=== PATIENT | female | born 1960 | race Caucasian/White ===

== ENCOUNTER 2017-07-16 09:38 | Observation (INO) | payer OTHER ==
--- OUTSIDE RECORDS SUMMARY | 2017-07-16 09:50 | XMS REPORT ---
:1960 External Reference #:[id number] Author Organization [facility] Address [address] [address] Phone [phone] Care Team Providers Name Role Phone Esdras Hyatt MD Primary Care Physician Unavailable Payers Type Date Identification Numbers Payment Provider Subscriber Medicaid Expires: 2016 Policy Number: [id number] Medicaid Ayanna Aleman Group Name: [id number] [address] PayID: [id number] [place] [address] Commercial Effective: 2016 Policy Number: Total Care/Mallory MNG Ayanna Durandl [id number] [facility] Group Name: [id number] [address] [id number] PayID: [id number] [place] [address] Advance Directives Type Date Description Status Comment Other Directive 06/13/2017 Health Care Proxy Current and Verified Problems Date Description Provider Status Onset: 03/22/2016 Abnormal glucose level Esdras Hyatt M.D. 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 Active hand AND/OR wrist Onset: 08/14/2016 Thoracic and lumbosacral neuritis Esdras Hyatt M.D. Active Onset: 04/18/2017 Knee pain Esdras Hyatt M.D. Active Onset: 06/11/2017 Lymphedema Esdras Hyatt M.D. Active Onset: 06/11/2017 Gastroesophageal reflux disease Esdras Hyatt M.D. Active Onset: 06/17/2017 Tachycardia Esdras Hyatt M.D. Active Onset: 03/22/2016 Pain in axilla Esdras Hyatt M.D. Inactive Inactive: 05/22/2016 Onset: 03/22/2016 Low back pain Esdras Hyatt M.D. Inactive Inactive: 06/24/2017 Onset: 03/22/2016 Anxiety state Esdras Hyatt M.D. Inactive Inactive: 06/24/2017 Onset: 05/01/2016 Iliotibial band friction Murphy Molina M.D.,FACP Inactive syndrome Inactive: 06/24/2017 Onset: 08/14/2016 Panic disorder without agoraphobia Esdras Hyatt M.D. Inactive Inactive: 06/24/2017 Onset: 09/04/2016 Lumbar radiculopathy Esdras Hyatt M.D. Inactive Inactive: 06/24/2017 Onset: 04/18/2017 Shoulder joint pain Esdras Hyatt M.D. 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 Cigarette Use Heavy tobacco smoker (more than 10 cigarettes/day) ETOH Use Denies alcohol use Recreational Drug Use Denies Drug Use Smoking Light tobacco smoker (10 or fewer cigarettes/day) Exercise Type/Frequency Exercises sporadically General Hx Text 2 daughters Allergies, Adverse Reactions, Alerts Date Description Reaction Status Severity Comments 03/22/2016 Levaquin active 03/22/2016 Fish-derived Products active 12/25/2016 Seafood active Medications Medication Date Status Form Strength Qnty SIG Indications Ordering Provider Triamterene/Gueydan 07/03/ Active Capsules 37.5-25mg 30cap take one I89.0 [place] chlorothiazide 2016 s capsule by Pachikara mouth once , M.D. daily in the morning Pantoprazole 06/11/ Active Tablets 20mg 30tab once daily K21.[address] s in the morning 1 , MBrandenD. before breakfast Mucinex 05/28/ Active Tablets 600mg 14tab 1 by mouth R05 Zsofia 2016 ER 12HR s twice a day Saurabh, RADIO FREQUENCY TECHNICIAN Zyrtec Allergy 05/28/ Active Capsules 10mg 30cap take one J30.9 Zsofia 2016 s tablet by Saurabh, mouth in RADIO FREQUENCY TECHNICIAN the evening Nasal [place] 12 05/28/ Active Solution 0.05% 30ml 2 sprays R05 Zsofia Hour 2017 each Saurabh, nostril 2x RADIO FREQUENCY TECHNICIAN daily as needed for congestion Ibuprofen 08/14/ Active Tablets 600mg 90tab three times M51.16 Esdras 2016 s a day Patricia Hyatt Vitamin D 06/10/ Active Capsules [id number] 4caps 1 cap every E55.9 Esdras (Ergocalciferol) 2016 weekly Patricia Hyatt Oxycodone HCL 06/10/ Active Tablets 10mg 90tab 1 tab 8h as M66.231 Esdras 2015 s needed Patricia Hyatt Alprazolam / Active Tablets 0.5mg 120ta 1 tab four [place] 0000 bs times a day Olena as needed , M.DBranden for anxiety. Gabapentin / Active Capsules 300mg 90cap 1 by mouth Esdras 0000 s three times Pachikara a day , M.DBranden Robitussin / Active Capsules 10-200mg 1 teaspoon Unknown Cough+Chest 0000 by mouth Congestion DM every 4-6 hours as needed Buspirone HCL / Active Tablets 7.5mg 30tab 1 by mouth Esdras 0000 s daily at [facility] bedtime , M.DBranden Nortriptyline HCL / Active Capsules 10mg 1-2 caps by Unknown 0000 mouth every night as directed Cyclobenzaprine / Active Tablets 10mg one by Unknown HCL 0000 mouth three times a day as needed spasm Diclofenac Sodium / Active Gel 1% apply 1 Unknown 0000 grams on hands twice daily Triamterene/Gueydan 06/17/ Hx Tablets 37.5-25mg 14tab 1/2 tab by I89.0 Esdras chlorothiazide 2016 - s mouth every Pachikara 07/03/ day in Patricia pettit 2017 the morning Amoxicillin/Clavu 06/11/ Hx Tablets 875-125mg 20tab 1 by mouth J06.9 [place] lanate Potassium 2017 - s twice a day Marenikara 06/21/ Patricia 2017 Azithromycin 05/28/ Hx Tablets 250mg 6tabs take 2 tabs R05 Zsofia 2017 - on day one Saurabh, 06/10/ and 1 tabs RADIO FREQUENCY TECHNICIAN 2017 daily for 4 days Azithromycin 12/25/ Hx Tablets 250mg 6tabs 2 tab today J06.9 Esdras 2017 - and then Pachikara 12/25/ 1tab daily , Wilber.Renard 2016 Amoxicillin/Clavu 12/25/ Hx Tablets 875-125mg 20tab 1 by mouth J06.9 Esdras lanate Potassium 2017 - s twice a day Marenikara 03/26/ , Patricia 2016 Amoxicillin 05/17/ Hx Capsules 500mg 15cap 1 by mouth [place] 2016 - s three times Pachikara 06/27/ a day , Patricia 2015 Amoxicillin/Clavu 03/22/ Hx Tablets 500-125mg 14tab 1 by mouth J20.9 Esdras lanate Potassium 2016 - s twice a day Pachikara 05/01/ , Patricia 2016 Nucynta / Hx Tablets 75mg 90tab 1 tab three Tao 0000 - s times a day Jeff, 06/11/ [employer] 2016 Vitamin D / Hx Tablets 1000Unit 2 tabs Murphy (Cholecalciferol) 0000 - daily Renard Molina, 06/10/ fall/winter Patricia,[facility] 2016 Vital Signs Date Vital Result Comment 07/03/2017 Weight 189.00 lb Heart Rate 119 /min BP Systolic Sitting 122 mmHg BP Diastolic Sitting 82 mmHg Body Temperature 98.8 F O2 % BldC Oximetry 94 % 06/17/2017 Weight 192.00 lb Heart Rate 114 /min BP Systolic Standing 125 mmHg BP Diastolic Standing 87 mmHg O2 % BldC Oximetry 91 % 06/11/2017 Height 62 inches 5'2" Weight 192.00 lb Heart Rate 117 /min BP Systolic Sitting 130 mmHg BP Diastolic Sitting 88 mmHg Body Temperature 99.0 F Pain Level 5 knees bilat. worse w stairs O2 % BldC Oximetry 97 % BMI (Body Mass Index) 35.1 kg/m2 05/28/2017 Height 62 inches 5'2" Weight 189.38 lb Heart Rate 111 /min BP Systolic 116 mmHg BP Diastolic 62 mmHg Body Temperature 99.0 F O2 % BldC Oximetry 98 % BMI (Body Mass Index) 34.6 kg/m2 Neck Circumference in inches 5 04/18/2017 Height 62 inches 5'2" Weight 181.50 lb Heart Rate 84 /min BP Systolic 126 mmHg BP Diastolic 64 mmHg Body Temperature 98.7 F O2 % BldC Oximetry 96 % BMI (Body Mass Index) 33.2 kg/m2 04/17/2017 Height 62 inches 5'2" Weight 184.00 lb BP Systolic 114 mmHg BP Diastolic 78 mmHg Respiratory Rate 20 /min Pain Level 3 BMI (Body Mass Index) 33.7 kg/m2 04/14/2017 Height 62.75 inches 5'2.75" Weight 184.00 lb Heart Rate 98 /min BP Systolic 131 mmHg BP Diastolic 85 mmHg Body Temperature 98.1 F BMI (Body Mass Index) 32.9 kg/m2 04/10/2017 Height 62 inches 5'2" Weight 183.50 lb Heart Rate 119 /min BP Systolic 128 mmHg BP Diastolic 76 mmHg Body Temperature 99.0 F O2 % BldC Oximetry 98 % BMI (Body Mass Index) 33.6 kg/m2 03/26/2017 Height 62 inches 5'2" Weight 183.00 lb Heart Rate 112 /min BP Systolic Sitting 152 mmHg BP Diastolic Sitting 80 mmHg O2 % BldC Oximetry 95 % BMI (Body Mass Index) 33.5 kg/m2 12/25/2016 Weight 180.00 lb Heart Rate 132 /min BP Systolic Sitting 120 mmHg BP Diastolic Sitting 78 mmHg O2 % BldC Oximetry 97 % 11/06/2016 Weight 183.00 lb with shoes Heart Rate 103 /min BP Systolic 126 mmHg BP Diastolic 80 mmHg O2 % BldC Oximetry 97 % 09/04/2016 Weight 179.00 lb with shoes Heart Rate 79 /min BP Systolic 114 mmHg BP Diastolic 80 mmHg O2 % BldC Oximetry 98 % 08/14/2016 Weight 178.00 lb with boots Heart Rate 103 /min BP Systolic Sitting 120 mmHg BP Diastolic Sitting 84 mmHg O2 % BldC Oximetry 98 % 07/09/2016 Height 62 inches 5'2" Weight 175.00 lb Heart Rate 86 /min BP Systolic Sitting 110 mmHg BP Diastolic Sitting 78 mmHg Body Temperature 99.0 F O2 % BldC Oximetry 94 % BMI (Body Mass Index) 32.0 kg/m2 06/27/2016 Height 62 inches 5'2" Weight 178.00 lb Heart Rate 106 /min BP Systolic Sitting 136 mmHg BP Diastolic Sitting 88 mmHg Body Temperature 97.8 F O2 % BldC Oximetry 95 % BMI (Body Mass Index) 32.6 kg/m2 06/10/2016 Height 62 inches 5'2" Weight 174.25 lb Heart Rate 105 /min BP Systolic Sitting 120 mmHg BP Diastolic Sitting 80 mmHg Body Temperature 99.5 F O2 % BldC Oximetry 97 % BMI (Body Mass Index) 31.9 kg/m2 05/22/2016 Weight 175.00 lb Heart Rate 87 /min BP Systolic Sitting 128 mmHg BP Diastolic Sitting 62 mmHg Body Temperature 98.4 F O2 % BldC Oximetry 96 % 05/01/2016 Height 62 inches 5'2" Weight 170.00 lb Heart Rate 96 /min BP Systolic Sitting 108 mmHg 127/97 pt cuff BP Diastolic Sitting 82 mmHg 127/97 pt cuff Body Temperature 98.4 F O2 % BldC Oximetry 93 % BMI (Body Mass Index) 31.1 kg/m2 03/22/2016 Height 62 inches 5'2" Weight 169.25 lb BP Systolic Sitting 140 mmHg BP Diastolic Sitting 80 mmHg Body Temperature 98.1 F O2 % BldC Oximetry 97 % BMI (Body Mass Index) 31.0 kg/m2 Results Test Date Test Result H/L Range Note Xray 05/28/2017 Chest PA & Lat 2 <pending> VWS Laboratory test 04/02/2017 Vitamin D, 1,25 37 pg/mL 18-78 1 finding Dihydroxy Lipid Profile 04/02/2017 Triglycerides 191 mg/dL 2 (Trig/Chol/HDL) Cholesterol 198 mg/dL 3 HDL Cholesterol 35.3 mg/dL 4 LDL Cholesterol 125 mg/dL 5 Laboratory test finding 02/07/2017 Erythrocyte Sed Rate 16 mm/Hr 0-30 Rheumatoid Factor <15 IU/mL <15 6 Anti Nuclear Antibody 0.1 U 7 Protein Electrophoresis 10/12/2016 Total Protein(Pep) 6.9 g/dL 6.3 - 7.9 Albumin 3.4 g/dL 3.4-4.7 Alpha-1 Globulin 0.3 g/dL 0.1-0.3 Alpha-2 Globulin 0.9 g/dL 0.6-1.0 Beta Globulin 0.8 g/dL 0.7-1.2 Gamma Globulin 1.4 g/dL 0.6-1.6 Albumin/Globulin Ratio 1.00 Impression See Comment 8 Laboratory test finding 10/12/2016 Hemoglobin A1c (Glyco HGB) 6.0 % Less than 6.0 9 Glucose 87 mg/dL 70-100 10 Drug Abuse 20 Urine 09/13/2016 Urine Amphetamine Negative ng/mL 11 Urine Barbiturates Negative ng/mL 12 Urine Benzodiazepines Presumptive Posi <SEE NOTE> 13 ng/mL Urine Cocaine Negative ng/mL 14 Urine Phencyclidine Negative ng/mL Cutoff: 25 Urine Tetrahydrocannabinol Negative ng/mL Cutoff: 50 15 Creatinine 62.4 mg/dL Specific Nenzel 1.012 pH 6.0 Oxidants Negative 16 Adulterants Comment Normal Codeine, Ur Not Detected ng/mL Cutoff: 25 17 Vdkcxxk-9-ynlx-glucuronide, Ur Not Detected ng/mL 18 Morphine, Ur Not Detected ng/mL Cutoff: 25 19 Vazuxtbs-4-zajn-glucuronide, U Not Detected ng/mL 20 6-monoacetylmorphine, Ur Not Detected ng/mL Cutoff: 25 21 Hydrocodone, Ur Not Detected ng/mL Cutoff: 25 22 Norhydrocodone, Ur Not Detected ng/mL Cutoff: 25 23 Dihydrocodeine, Ur Not Detected ng/mL Cutoff: 25 24 Hydromorphone, Ur Not Detected ng/mL Cutoff: 25 25 Kfouenpnaiulb3jgkttgytqhvihtm Not Detected ng/mL 26 Oxycodone, Ur Present ng/mL Cutoff: 25 27 Noroxycodone, Ur Present ng/mL Cutoff: 25 28 Oxymorphone, Ur Present ng/mL Cutoff: 25 29 Qqtznzpkjbe-0-vaxa-glucuronide Present ng/mL 30 Noroxymorphone, Ur Present ng/mL Cutoff: 25 31 Fentanyl, Ur Not Detected ng/mL Cutoff: 2 32 Norfentanyl, Ur Not Detected ng/mL Cutoff: 2 33 Meperidine, Ur Not Detected ng/mL Cutoff: 25 34 Normeperidine, Ur Not Detected ng/mL Cutoff: 25 35 Naloxone, Ur Not Detected ng/mL Cutoff: 25 36 Nflixnvz-9-ihqi-glucuronide, U Not Detected ng/mL 37 Methadone, Ur Not Detected ng/mL Cutoff: 25 38 Eddp, Ur Not Detected ng/mL Cutoff: 25 39 Propoxyphene, Ur Not Detected ng/mL Cutoff: 25 40 Norpropoxyphene, Ur Not Detected ng/mL Cutoff: 25 41 Tramadol, Ur Not Detected ng/mL Cutoff: 25 42 O-desmethyltramadol, Ur Not Detected ng/mL Cutoff: 25 43 Tapentadol, Ur Not Detected ng/mL Cutoff: 25 44 N-desmethyltapentadol, Ur Not Detected ng/mL Cutoff: 50 45 Rjnvjsxrqc-qncu-nsmgmsewvst, U Not Detected ng/mL 46 Buprenorphine, Ur Not Detected ng/mL Cutoff: 5 47 Norbuprenorphine, Ur Not Detected ng/mL Cutoff: 5 48 Norbuprenorphine glucuronide Not Detected ng/mL Cutoff: 20 49 Opioid Interpretation See Comment 50 Benzodiazepine Confirm Urine 09/13/2016 Urine Lorazepam GC/MS Negative ng/ mL 51 Urine Nordiazepam GC/MS Negative ng/mL 52 Urine Oxazepam GC/MS Negative ng/mL 53 Urine Temazepam GC/MS Negative ng/mL 54 Ur Oh Ethyl Flurazepam GC/MS Negative ng/mL 55 Ur 7 NH Clonazepam GC/MS Negative ng/mL 56 Ur 7 NH Flunitrazepam GC/MS Negative ng/mL Cutoff: 50 Ur Alpha Oh Alprazolam GC/MS 246 ng/mL 57 Ur Alpha Oh Triazolam GC/MS Negative ng/mL 58 Ur Benzodiazepine Interp See Comment 59 Laboratory test finding 09/02/2016 Vitamin D Total 23.0 ng/mL Low 30-50 25(Oh) Benzodiazepine Confirm 06/27/2016 Urine Lorazepam Negative ng/mL 60 Urine GC/MS Urine Nordiazepam GC/MS Negative ng/mL 61 Urine Oxazepam GC/MS Negative ng/mL 62 Urine Temazepam GC/MS Negative ng/mL 63 Ur Oh Ethyl Flurazepam GC/MS Negative ng/mL 64 Ur 7 NH Clonazepam GC/MS Negative ng/mL 65 Ur 7 NH Flunitrazepam GC/MS Negative ng/mL Cutoff: 50 Ur Alpha Oh Alprazolam GC/MS 363 ng/mL 66 Ur Alpha Oh Triazolam GC/MS Negative ng/mL 67 Ur Benzodiazepine Interp See Comment 68 Drug Abuse 20 Urine 06/27/2016 Urine Amphetamine Negative ng/mL 69 Urine Barbiturates Negative ng/mL 70 Urine Benzodiazepines Presumptive Posi <SEE NOTE> 71 ng/mL Urine Cocaine Negative ng/mL 72 Urine Phencyclidine Negative ng/mL Cutoff: 25 Urine Tetrahydrocannabinol Negative ng/mL Cutoff: 50 73 Creatinine 84.0 mg/dL Specific Nenzel 1.010 pH 7.0 Oxidants Negative 74 Adulterants Comment Normal Codeine, Ur Not Detected ng/mL Cutoff: 25 75 Dlqbrum-3-gsqw-glucuronide, Ur Not Detected ng/mL 76 Morphine, Ur Not Detected ng/mL Cutoff: 25 77 Tamlucub-5-pypw-glucuronide, U Not Detected ng/mL 78 6-monoacetylmorphine, Ur Not Detected ng/mL Cutoff: 25 79 Hydrocodone, Ur Not Detected ng/mL Cutoff: 25 80 Norhydrocodone, Ur Not Detected ng/mL Cutoff: 25 81 Dihydrocodeine, Ur Not Detected ng/mL Cutoff: 25 82 Hydromorphone, Ur Not Detected ng/mL Cutoff: 25 83 Wcncgfmuwgcpb7zrupdspgcqwopca Not Detected ng/mL 84 Oxycodone, Ur Present ng/mL Cutoff: 25 85 Noroxycodone, Ur Present ng/mL Cutoff: 25 86 Oxymorphone, Ur Present ng/mL Cutoff: 25 87 Xmavjzyyfjt-8-zpvt-glucuronide Present ng/mL 88 Noroxymorphone, Ur Present ng/mL Cutoff: 25 89 Fentanyl, Ur Not Detected ng/mL Cutoff: 2 90 Norfentanyl, Ur Not Detected ng/mL Cutoff: 2 91 Meperidine, Ur Not Detected ng/mL Cutoff: 25 92 Normeperidine, Ur Not Detected ng/mL Cutoff: 25 93 Naloxone, Ur Not Detected ng/mL Cutoff: 25 94 Cpzeqwwt-9-xtjj-glucuronide, U Not Detected ng/mL 95 Methadone, Ur Not Detected ng/mL Cutoff: 25 96 Eddp, Ur Not Detected ng/mL Cutoff: 25 97 Propoxyphene, Ur Not Detected ng/mL Cutoff: 25 98 Norpropoxyphene, Ur Not Detected ng/mL Cutoff: 25 99 Tramadol, Ur Not Detected ng/mL Cutoff: 25 100 O-desmethyltramadol, Ur Not Detected ng/mL Cutoff: 25 101 Tapentadol, Ur Not Detected ng/mL Cutoff: 25 102 N-desmethyltapentadol, Ur Not Detected ng/mL Cutoff: 50 103 Ilsyrxrydv-kopx-botpvwzkrrr, U Not Detected ng/mL 104 Buprenorphine, Ur Not Detected ng/mL Cutoff: 5 105 Norbuprenorphine, Ur Not Detected ng/mL Cutoff: 5 106 Norbuprenorphine glucuronide Not Detected ng/mL Cutoff: 20 107 Opioid Interpretation See Comment 108 Laboratory test finding 05/08/2016 Vitamin D Total 25(Oh) 17.6 ng/mL Low 30-50 Protein Electrophoresis 05/08/2016 Total Protein(Pep) 6.7 g/dL 6.3 - 7.9 Albumin 3.5 g/dL 3.4-4.7 Alpha-1 Globulin 0.3 g/dL 0.1-0.3 Alpha-2 Globulin 0.8 g/dL 0.6-1.0 Beta Globulin 0.9 g/dL 0.7-1.2 Gamma Globulin 1.3 g/dL 0.6-1.6 Albumin/Globulin Ratio 1.10 Impression See Comment 109 Immunofixation See Comment 110 Basic Metabolic Panel 05/08/2016 Sodium 141 mmol/L 133-145 Potassium 4.2 mmol/L 3.5-5.0 Chloride 107 mmol/L 101-111 Co2 Carbon Dioxide 28 mmol/L 22-32 Anion Gap 6 mmol/L 2-11 Glucose 123 mg/dL High 70-100 Blood Urea Nitrogen 15 mg/dL 6-24 Creatinine 0.81 mg/dL 0.51-0.95 BUN/Creatinine Ratio 18.5 8-20 Calcium 9.3 mg/dL 8.6-10.3 Egfr Non- 73.7 >60 Egfr 94.8 >60 111 CBC Auto Diff 05/08/2016 White Blood Count 8.2 10^3/uL 3.5-10.8 Red Blood Count 4.70 10^6/uL 4.0-5.4 Hemoglobin 14.5 g/dL 12.0-16.0 Hematocrit 43 % 35-47 Mean Corpuscular Volume 91 fL 80-97 Mean Corpuscular Hemoglobin 31 pg 27-31 Mean Corpuscular HGB Conc 34 g/dL 31-36 Red Cell Distribution Width 14 % 10.5-15 Platelet Count 181 10^3/uL 150-450 Mean Platelet Volume 11 um3 High 7.4-10.4 Abs Neutrophils 5.4 10^3/uL 1.5-7.7 Abs Lymphocytes 2.2 10^3/uL 1.0-4.8 Abs Monocytes 0.5 10^3/uL 0-0.8 Abs Eosinophils 0.1 10^3/uL 0-0.6 Abs Basophils 0 10^3/uL 0-0.2 Abs Nucleated RBC 0 10^3/uL Granulocyte % 66.0 % 38-83 Lymphocyte % 26.4 % 25-47 Monocyte % 5.6 % 1-9 Eosinophil % 1.4 % 0-6 Basophil % 0.6 % 0-2 Nucleated Red Blood Cells % 0.1 Benzodiazepine Confirm Urine 03/22/2016 Urine Lorazepam GC/MS Negative ng/ mL 112 Urine Nordiazepam GC/MS Negative ng/mL 113 Urine Oxazepam GC/MS Negative ng/mL 114 Urine Temazepam GC/MS Negative ng/mL 115 Ur Oh Ethyl Flurazepam GC/MS Negative ng/mL 116 Ur 7 NH Clonazepam GC/MS Negative ng/mL 117 Ur 7 NH Flunitrazepam GC/MS Negative ng/mL Cutoff: 50 Ur Alpha Oh Alprazolam GC/MS 522 ng/mL 118 Ur Alpha Oh Triazolam GC/MS Negative ng/mL 119 Ur Benzodiazepine Interp Positive. 120 Drug Abuse 20 Urine 03/22/2016 Urine Amphetamine Negative ng/mL 121 Urine Barbiturates Negative ng/mL 122 Urine Benzodiazepines Presumptive Posi <SEE NOTE> 123 ng/mL Urine Cocaine Negative ng/mL 124 Urine Phencyclidine Negative ng/mL Cutoff: 25 Urine Tetrahydrocannabinol Negative ng/mL Cutoff: 50 125 Creatinine 75.2 mg/dL Specific Nenzel 1.009 pH 6.5 Oxidants Negative 126 Adulterants Comment Normal Codeine, Ur Not Detected ng/mL Cutoff: 25 127 Hmhfmul-9-lode-glucuronide, Ur Not Detected ng/mL 128 Morphine, Ur Not Detected ng/mL Cutoff: 25 129 Anfpuozb-6-wkxb-glucuronide, U Not Detected ng/mL 130 6-monoacetylmorphine, Ur Not Detected ng/mL Cutoff: 25 131 Hydrocodone, Ur Not Detected ng/mL Cutoff: 25 132 Norhydrocodone, Ur Not Detected ng/mL Cutoff: 25 133 Dihydrocodeine, Ur Not Detected ng/mL Cutoff: 25 134 Hydromorphone, Ur Not Detected ng/mL Cutoff: 25 135 Oevglrtnzphlo7kgdgjakyzgwhfnr Not Detected ng/mL 136 Oxycodone, Ur Not Detected ng/mL Cutoff: 25 137 Noroxycodone, Ur Not Detected ng/mL Cutoff: 25 138 Oxymorphone, Ur Not Detected ng/mL Cutoff: 25 139 Okpddigdgxr-3-phkc-glucuronide Not Detected ng/mL 140 Noroxymorphone, Ur Not Detected ng/mL Cutoff: 25 141 Fentanyl, Ur Not Detected ng/mL Cutoff: 2 142 Norfentanyl, Ur Not Detected ng/mL Cutoff: 2 143 Meperidine, Ur Not Detected ng/mL Cutoff: 25 144 Normeperidine, Ur Not Detected ng/mL Cutoff: 25 145 Naloxone, Ur Not Detected ng/mL Cutoff: 25 146 Cajbauqo-2-ajdj-glucuronide, U Not Detected ng/mL 147 Methadone, Ur Not Detected ng/mL Cutoff: 25 148 Eddp, Ur Not Detected ng/mL Cutoff: 25 149 Propoxyphene, Ur Not Detected ng/mL Cutoff: 25 150 Norpropoxyphene, Ur Not Detected ng/mL Cutoff: 25 151 Tramadol, Ur Not Detected ng/mL Cutoff: 25 152 O-desmethyltramadol, Ur Not Detected ng/mL Cutoff: 25 153 Tapentadol, Ur Present ng/mL Cutoff: 25 154 N-desmethyltapentadol, Ur Present ng/mL Cutoff: 50 155 Prmmoilguh-qiiw-nrjvddoxiur, U Present ng/mL 156 Buprenorphine, Ur Not Detected ng/mL Cutoff: 5 157 Norbuprenorphine, Ur Not Detected ng/mL Cutoff: 5 158 Norbuprenorphine glucuronide Not Detected ng/mL Cutoff: 20 159 Opioid Interpretation See Comment 160 1 ADDITIONAL INFORMATION This test was developed and its performance characteristics determined by [facility] in a manner consistent with CLIA requirements. This test has not been cleared or approved by the U.S. Food and Drug Administration. Test Performed by: [facility] - [address] [address] 2 Desirable <150 Borderline high 150-199 High 200-499 Very High >500 3 Desirable <200 Borderline high 200-239 High >239 4 Low <40 Desirable: 40-60 High: >60 5 Desirable: <100 mg/dL Near Optimal: 100-129 mg/dL Borderline High: 130-159 mg/dL High: 160-189 mg/dL Very High: >189 mg/dL 6 Test Performed by: [address] [id number] 7 REFERENCE VALUE <=1.0 (Negative) Test Performed by: [address] [id number] 8 RESULT: Small abnormality in gamma fraction. Test Performed by: [address] [id number] 9 Therapeutic target for the treatment of diabetes Mellitus patients is <7% HBA1C, and in selective patients <6.0%.Please refer to [place] [employer] Diabetic care guidelines for further information. 10 FASTING 10 HOUR 11 REFERENCE VALUE Cutoff: 500 12 REFERENCE VALUE Cutoff: 200 13 Presumptive Positive Drug confirmation to follow. Presumptive Positive means that the screening method is positive, but the test needs to be run by a confirmatory method before being finalized. REFERENCE VALUE Cutoff: 100 14 REFERENCE VALUE Cutoff: 150 15 ADDITIONAL INFORMATION This report is intended for use in clinical monitoring or management of patients. It is not intended for use in employment-related testing. 16 REFERENCE VALUE Cutoff: 200 mg/L 17 Tylenol 3 18 Metabolite of codeine REFERENCE VALUE Cutoff: 100 19 Leticia Romero, Contin; Also a minor metabolite (10%) of codeine and can be seen in low concentrations (<2,000 ng/mL) with poppy seed ingestion. 20 Metabolite of morphine REFERENCE VALUE Cutoff: 100 21 Metabolite of heroin 22 Lortab, [place], Vicodin; Also a very minor metabolite of codeine and impurity (<1%) of oxycodone. 23 Metabolite of hydrocodone 24 Metabolite of hydrocodone 25 Dilaudid, Exalgo; Also a metabolite of hydrocodone and a minor (<5%) metabolite of morphine. 26 Metabolite of hydromorphone REFERENCE VALUE Cutoff: 100 27 Endocet, Percocet, Oxycontin 28 Metabolite of oxycodone 29 Numorphan, Opana; Also a metabolite of oxycodone. 30 Metabolite of oxymorphone REFERENCE VALUE Cutoff: 100 31 Metabolite of oxymorphone 32 Actiq, Duragesic, [place] 33 Metabolite of fentanyl 34 Demerol 35 Metabolite of meperidine 36 Narcan 37 Metabolite of naloxone REFERENCE VALUE Cutoff: 100 38 Dolophine 39 Metabolite of methadone 40 Darvon, Darvocet 41 Metabolite of propoxyphene 42 Tradol, Ultram, Ultracet 43 Metabolite of tramadol 44 Nucynta 45 Metabolite of tapentadol 46 Metabolite of tapentadol REFERENCE VALUE Cutoff: 100 47 Buprenex, Suboxone 48 Metabolite of buprenorphine 49 Metabolite of buprenorphine 50 Test detected the presence of oxycodone and several metabolites (noroxycodone, oxymorphone, noroxymorphone, and jfiwtfzmptu-7-diyi-glucuronide). Suspect use of oxycodone or possibly oxycodone and oxymorphone within the past three days. ADDITIONAL INFORMATION This test was developed and its performance characteristics determined by [facility] in a manner consistent with CLIA requirements. This test has not been cleared or approved by the U.S. Food and Drug Administration. Test Performed by: [facility] [employer] - [address] [address] Computer Systems Hardware Analyst: Andrew Lam II, M.D., Ph.D. 51 REFERENCE VALUE Cutoff: 100 52 REFERENCE VALUE Cutoff: 100 53 REFERENCE VALUE Cutoff: 100 54 REFERENCE VALUE Cutoff: 100 55 REFERENCE VALUE Cutoff: 100 56 REFERENCE VALUE Cutoff: 100 57 REFERENCE VALUE Cutoff: 100 58 REFERENCE VALUE Cutoff: 100 59 Positive. 0-YE-Dyqlfvqfkc testing performed at a x2 dilution; limit of quantitation is elevated. ADDITIONAL INFORMATION This report is intended for use in clinical monitoring and management of patients. It is not intended for use in employment-related testing. This test was developed and its performance characteristics determined by [facility] in a manner consistent with CLIA requirements. This test has not been cleared or approved by the U.S. Food and Drug Administration. Test Performed by: [address] [address] Computer Systems Hardware Analyst: Andrew Lam II, M.D., Ph.D. 60 REFERENCE VALUE Cutoff: 100 61 REFERENCE VALUE Cutoff: 100 62 REFERENCE VALUE Cutoff: 100 63 REFERENCE VALUE Cutoff: 100 64 REFERENCE VALUE Cutoff: 100 65 REFERENCE VALUE Cutoff: 100 66 REFERENCE VALUE Cutoff: 100 67 REFERENCE VALUE Cutoff: 100 68 Positive. 3-RW-Izidklpuwbogh testing performed at a x2 dilution; limit of quantitation is elevated. ADDITIONAL INFORMATION This report is intended for use in clinical monitoring and management of patients. It is not intended for use in employment-related testing. Test Performed by: [facility] - [address] [address] Computer Systems Hardware Analyst: Andrew Lam II, M.D., Ph.D. 69 REFERENCE VALUE Cutoff: 500 70 REFERENCE VALUE Cutoff: 200 71 Presumptive Positive Drug confirmation to follow. Presumptive Positive means that the screening method is positive, but the test needs to be run by a confirmatory method before being finalized. REFERENCE VALUE Cutoff: 100 72 REFERENCE VALUE Cutoff: 150 73 ADDITIONAL INFORMATION This report is intended for use in clinical monitoring or management of patients. It is not intended for use in employment-related testing. 74 REFERENCE VALUE Cutoff: 200 mg/L 75 Tylenol 3 76 Metabolite of codeine REFERENCE VALUE Cutoff: 100 77 Leticia Romero, MS Contin; Also a minor metabolite (10%) of codeine and can be seen in low concentrations (<2,000 ng/mL) with poppy seed ingestion. 78 Metabolite of morphine REFERENCE VALUE Cutoff: 100 79 Metabolite of heroin 80 Lortab, [place], Vicodin; Also a very minor metabolite of codeine and impurity (<1%) of oxycodone. 81 Metabolite of hydrocodone 82 Metabolite of hydrocodone 83 Dilaudid, Exalgo; Also a metabolite of hydrocodone and a minor (<5%) metabolite of morphine. 84 Metabolite of hydromorphone REFERENCE VALUE Cutoff: 100 85 Endocet, Percocet, Oxycontin 86 Metabolite of oxycodone 87 Numorphan, Opana; Also a metabolite of oxycodone. 88 Metabolite of oxymorphone REFERENCE VALUE Cutoff: 100 89 Metabolite of oxymorphone 90 Actiq, Duragesic, Fentora 91 Metabolite of fentanyl 92 Demerol 93 Metabolite of meperidine 94 Narcan 95 Metabolite of naloxone REFERENCE VALUE Cutoff: 100 96 Dolophine 97 Metabolite of methadone 98 Darvon, Darvocet 99 Metabolite of propoxyphene 100 Tradol, Ultram, Ultracet 101 Metabolite of tramadol 102 Nucynta 103 Metabolite of tapentadol 104 Metabolite of tapentadol REFERENCE VALUE Cutoff: 100 105 Buprenex, Suboxone 106 Metabolite of buprenorphine 107 Metabolite of buprenorphine 108 Test detected the presence of oxycodone and several metabolites (noroxycodone, oxymorphone, noroxymorphone, and royzlevyrjl-0-jaqq-glucuronide). Suspect use of oxycodone or possibly oxycodone and oxymorphone within the past three days. ADDITIONAL INFORMATION This test was developed and its performance characteristics determined by [facility] in a manner consistent with CLIA requirements. This test has not been cleared or approved by the U.S. Food and Drug Administration. Test Performed by: [place] [address] Computer Systems Hardware Analyst: Andrew Lam II, M.D., Ph.D. 109 Small abnormality in gamma fraction. See Immunofixation. Test Performed by: [place] [address] Computer Systems Hardware Analyst: Andrew Lam II, M.D., Ph.D. 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 Suggest repeat testing in 6-12 months if clinically indicated. Test Performed by: [place] [address] Computer Systems Hardware Analyst: Andrew Lam II, M.D., Ph.D. 111 Because ethnic data is not always readily available, this report includes an eGFR for both -Americans and non- Americans. The National Kidney Disease Education Program (NKDEP) does not endorse the use of the MDRD equation for patients that are not between the ages of 18 and 70, are , have extremes of body size, muscle mass, or nutritional status, or are non- or non-. According to the National Kidney Foundation, irrespective of diagnosis, the stage of the disease is based on the level of kidney function: Stage Description GFR(mL/min/1.73 m(2)) 1 Kidney damage with normal or decreased GFR 90 2 Kidney damage with mild decrease in GFR 60-89 3 Moderate decrease in GFR 30-59 4 Severe decrease in GFR 15-29 5 Kidney failure <15 (or dialysis) 112 REFERENCE VALUE Cutoff: 100 113 REFERENCE VALUE Cutoff: 100 114 REFERENCE VALUE Cutoff: 100 115 REFERENCE VALUE Cutoff: 100 116 REFERENCE VALUE Cutoff: 100 117 REFERENCE VALUE Cutoff: 100 118 REFERENCE VALUE Cutoff: 100 119 REFERENCE VALUE Cutoff: 100 120 ADDITIONAL INFORMATION This report is intended for use in clinical monitoring and management of patients. It is not intended for use in employment-related testing. Test Performed by: [facility] - [address] [address] Computer Systems Hardware Analyst: Andrew Lam II, M.D., Ph.D. 121 REFERENCE VALUE Cutoff: 500 122 REFERENCE VALUE Cutoff: 200 123 Presumptive Positive Drug confirmation to follow. Presumptive Positive means that the screening method is positive, but the test needs to be run by a confirmatory method before being finalized. REFERENCE VALUE Cutoff: 100 124 REFERENCE VALUE Cutoff: 150 125 ADDITIONAL INFORMATION This report is intended for use in clinical monitoring or management of patients. It is not intended for use in employment-related testing. 126 REFERENCE VALUE Cutoff: 200 mg/L 127 Tylenol 3 128 Metabolite of codeine REFERENCE VALUE Cutoff: 100 129 Leticia Romero, Contin; Also a minor metabolite (10%) of codeine and can be seen in low concentrations (<2,000 ng/mL) with poppy seed ingestion. 130 Metabolite of morphine REFERENCE VALUE Cutoff: 100 131 Metabolite of heroin 132 Lortab, [place], Vicodin; Also a very minor metabolite of codeine and impurity (<1%) of oxycodone. 133 Metabolite of hydrocodone 134 Metabolite of hydrocodone 135 Dilaudid, Exalgo; Also a metabolite of hydrocodone and a minor (<5%) metabolite of morphine. 136 Metabolite of hydromorphone REFERENCE VALUE Cutoff: 100 137 Endocet, Percocet, Oxycontin 138 Metabolite of oxycodone 139 Numorphan, Opana; Also a metabolite of oxycodone. 140 Metabolite of oxymorphone REFERENCE VALUE Cutoff: 100 141 Metabolite of oxymorphone 142 Actiq, Duragesic, Fentora 143 Metabolite of fentanyl 144 Demerol 145 Metabolite of meperidine 146 Narcan 147 Metabolite of naloxone REFERENCE VALUE Cutoff: 100 148 Dolophine 149 Metabolite of methadone 150 Darvon, Darvocet 151 Metabolite of propoxyphene 152 Tradol, Ultram, Ultracet 153 Metabolite of tramadol 154 Nucynta 155 Metabolite of tapentadol 156 Metabolite of tapentadol REFERENCE VALUE Cutoff: 100 157 Buprenex, Suboxone 158 Metabolite of buprenorphine 159 Metabolite of buprenorphine 160 Test detected the presence of tapentadol and two of its metabolites (n-desmethyltapentadol and mlfqhfpqfe-kout-xfmlmxcoing). Suspect use of tapentadol within the past three days. ADDITIONAL INFORMATION This test was developed and its performance characteristics determined by [facility] in a manner consistent with CLIA requirements. This test has not been cleared or approved by the U.S. Food and Drug Administration. PDF Report available at: [email or web address] Test Performed by: [place] [address] Computer Systems Hardware Analyst: Andrew Lam II, M.D., Ph.D. Procedures Date CPT Code Description Status 06/30/2017 17122 Holter Monitor Review (24 hr)dr ahs & bel Completed only 06/17/2017 55255 EKG Tracing & Interpretation Completed 06/17/2017 93942 EKG Tracing & Interpretation Completed 07/28/2014 Mammogram Completed 02/06/2012 Colonoscopy Completed Encounters Type Date Location Provider CPT E/M Dx Office Visit 06/17/2017 3:00p [facility] Internal Medicine Esdras Hyatt [address] R60.0 - Tbdavid Post M.D. R00.0 Office Visit 06/11/2017 4:00p [facility] Internal Medicine Esdras Hyatt [address] J06.9 - Wendi Gomez F41.9 I89.0 K21.9 Office Visit 05/28/2017 2:20p [facility] Internal Medicine - MAYE Gar [address] R05 [place] J30.9 F17.210 Office Visit 04/18/2017 10:00a [facility] Internal Esdras Hyatt 35854 M25.512 Medicine - [place] Gomez M25.562 Office Visit 04/17/2017 2:00p [facility] [place] [address] M25.512 Hu M77.11 G56.31 G56.32 M77.12 Office Visit 04/14/2017 1:15p [facility] Caesar [place], [address] M22.2x1 Of Hu BROWN M22.2x2 Office Visit 04/10/2017 4:20p [facility] Internal Esdras Hyatt 25119 M25.561 Medicine - [place] Gomez M25.562 M77.11 M25.512 Office Visit 03/26/2017 2:00p [facility] Internal Esdras Hyatt, 76690 Z00.01 Lety Adame M.D. F17.210 Z12.39 E55.9 Office Visit 12/25/2016 11:40a [facility] Internal Medicine Esdras Hyatt, [address] E55.9 - Wendi Gomez R73.9 Z11.59 J06.9 Z12.39 Z12.4 F17.210 Office Visit 11/06/2016 4:00p [facility] Internal Medicine Esdras Hyatt, [address]11[address] D47.2 - Wendi Gomez M51.16 F41.0 Office Visit 09/04/2016 4:00p [facility] Internal Esdras Hyatt, 27337 M54.16 Lety Adame M.D. E55.9 Office Visit 08/14/2016 9:40a [facility] Internal Esdras Hyatt, 65171 M66.231 Lety Adame M.D. M51.16 F41.0 Office Visit 07/09/2016 4:00p [facility] Internal Esdras Hyatt M.D. 77270 M54.5 Medicine - [address] Office Visit 06/27/2016 4:00p [facility] Internal Esdras Hyatt M.D. 77656 F41.0 Medicine - [address] M54.5 Z91.013 Office Visit 06/10/2016 1:40p [facility] Internal Esdras Hyatt M.D. 16838 M54.5 Medicine - [address] F41.0 M66.231 E55.9 Office Visit 05/22/2016 4:20p [facility] Internal Murphy Molina, [address]60 M66.231 Medicine - [address] Patricia,FACP M47.26 M76.32 E55.9 D47.2 R73.01 Office Visit 05/01/2016 3:40p [facility] Internal Medicine Murphy Molina, [address] M54.5 - [address] Patricia,FACP M76.32 E55.9 Office Visit 03/22/2016 9:00a [facility] Internal Esdras Hyatt, [address]492 M79.621 Medicine - [place] [address] Gomez M54.5 F41.9 J20.9 R73.9 M25.522 Plan of Care Future Appointment(s):07/09/2017 1:20 pm - Esdras Hyatt M.D. at [facility] Internal Medicine [facility]07/03/2017 - Esdras Hyatt M.D.I89.0 Lymphedema , not elsewhere classifiedNew Medication:Triamterene/Hydrochlorothiazide 37.5- 25 mgNew Xrays:VL Lower Ext Veins RightReferral:Joaquin Pereyra MD, Cardiovsclr DiseaseFollow up:as scheduled
--- OUTSIDE RECORDS SUMMARY | 2017-07-16 09:51 | XMS REPORT ---
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 Payers Type Date Identification Numbers Payment Provider Subscriber Commercial Policy Number: [id number] [facility] Ayanna Alejo PayID: [id number] [address] [address] [place] [address] Problems Date Description Provider Status Onset: 09/04/2016 Lumbar radiculopathy Esdras Hyatt MD Active Onset: 08/14/2016 Thoracic and lumbosacral neuritis Esdras Hyatt MD Active Onset: 08/14/2016 Panic disorder without agoraphobia Esdras Hyatt MD Active Onset: 06/10/2016 Rupture of extensor tendons of hand Esdras Hyatt MD Active AND/OR wrist Onset: 05/22/2016 Extensor carpi radialis tenosynovitis Mukesh Molina MD Active Onset: 05/22/2016 Vitamin D deficiency Mukesh Molina MD Active Onset: 05/01/2016 Iliotibial band friction syndrome Mukesh Molina MD Active Onset: 03/22/2016 Low back pain Esdras Hyatt MD Active Onset: 03/22/2016 Anxiety state Esdras Hyatt MD Active Onset: 03/22/2016 Abnormal glucose level Esdras Hyatt MD Active Family History Date Family Member(s) Problem(s) Comments Father Diabetes Father due to Stroke () Father Hypertension Mother Diabetes Mother Cancer Children 2 First Daughter A&W Second Daughter A&W Siblings 4 First Brother A&W Second Brother A&W Third Brother A&W First Sister Unknown Paternal Grandfather due to Leukemia () Paternal Grandmother due to Old Age () Maternal Grandfather Unknown Maternal Grandmother Unknown Social History Type Date Description Comments Education some college Marital Status Legal Status: Lives With Brothers nephews and neice Occupation Unemployed Cigarette Use Current Cigarette Smoker 1/2 Pack Daily ETOH Use Denies alcohol use Recreational Drug Use Denies Drug Use Smoking Patient is a current smoker, smokes every day Daily Caffeine Consumes on average 3 cups of coffee per day Exercise Type/Frequency Exercises sporadically Seat Belt/Car Seat Always uses seat belt Currently Active Patient is currently not sexually active Contraceptive Methods Current methods include tubal ligation STD's Genital Warts Allergies, Adverse Reactions, Alerts Date Description Reaction Status Severity Comments 03/22/2016 Levofloxacin active 03/22/2016 Fish-Derived Products active 04/28/2017 Contrast Dye active 04/28/2017 Iodine active Medications Medication Date Status Form Strength Qnty SIG Indications Ordering Provider Ibuprofen 08/14/ Active Tablets 600mg 90tabs three M51.16 Pachika 2016 times a Esdras MD Vitamin D 06/10/ Active Capsules [id number] 4caps 1 cap E55.9 Olena (Ergocalciferol) 2015 every , Esdras zamora MD Oxycodone HCL 06/10/ Active Tablets 10mg 90tabs 1 tab 8h M66.231 Pachika 2015 as needed Esdras MD Alprazolam / Active Tablets 0.5mg 120tab 1 tab [place], 0000 s four Mukesh times a MD Reynaldo day as needed for anxiety. Gabapentin / Active Capsules 300mg 90caps 1 by Pachikara 0000 mouth Esdras MD times a day Robitussin / Active Capsules 10-200mg 1 Unknown Cough+Chest 0000 teaspoon Congestion DM by mouth every 4-6 hours as needed Buspirone HCL / Active Tablets 7.5mg 30tabs 1 by [place], 0000 mouth Mukesh stewart Jacobs MD bedtime Nortriptyline HCL / Active Capsules 10mg 1-2 caps Unknown 0000 by mouth every night as directed Cyclobenzaprine / Active Tablets 10mg one by Unknown HCL 0000 mouth three times a day as needed spasm Diclofenac Sodium / Active Gel 1% Unknown 0000 Amoxicillin/Clavu / Active Tablets 500-125mg 1 by Unknown lanate Potassium 0000 mouth twice a day Triamterene/[place] / Active Capsules 37.5-25mg 1 by Unknown chlorothiazide 0000 mouth every day Vital Signs Date Vital Result Comment 06/23/2017 BP Systolic 132 mmHg BP Diastolic 86 mmHg Height 62 inches 5'2" Weight 186.00 lb BMI (Body Mass Index) 34.0 kg/m2 Last Menstrual Period [id number] 2 Parity 2 05/27/2017 BP Systolic 120 mmHg BP Diastolic 80 mmHg Height 62 inches 5'2" Weight 192.00 lb BMI (Body Mass Index) 35.1 kg/m2 2 Parity 2 04/28/2017 BP Systolic 124 mmHg BP Diastolic 82 mmHg Height 62 inches 5'2" Weight 183.00 lb BMI (Body Mass Index) 33.5 kg/m2 Last Menstrual Period 8775449 2 Parity 2 03/26/2017 Heart Rate 112 /min Height 62 inches Weight 183.00 lb BMI (Body Mass Index) 33.5 kg/m2 12/25/2016 Heart Rate 132 /min Weight 180.00 lb 11/06/2016 BP Systolic 126 mmHg BP Diastolic 80 mmHg Heart Rate 103 /min Weight 183.00 lb Results Test Date Test Result H/L Range Note Laboratory test 06/23/2017 Surgical Pathology <pending> finding Laboratory test 04/28/2017 Cytology SEE RESULT BELOW 1 finding Human Papilloma Virus Rna Negative Negative 2 Laboratory test finding 02/07/2017 Anti Nuclear Antibody 0.1 U Erythrocyte Sed Rate 16 mm/Hr 0-30 3 Laboratory test finding 10/12/2016 Glucose 87 mg/dL 70-100 4 Hemoglobin A1c (Glyco HGB) 6.0 % Less than 6.0 5 Protein Electrophoresis 10/12/2016 Albumin 3.4 g/dL 3.4-4.7 Albumin/Globulin Ratio 1.00 1 Alpha-1 Globulin 0.3 g/dL 0.1-0.3 Alpha-2 Globulin 0.9 g/dL 0.6-1.0 Beta Globulin 0.8 g/dL 0.7-1.2 Gamma Globulin 1.4 g/dL 0.6-1.6 Total Protein(Pep) 6.9 g/dL 6.3 - 7.9 6 Laboratory test finding 09/13/2016 Creatinine 62.4 mg/dL 7 Specific [place] 1.012 1 8 Ur Alpha Oh Alprazolam GC/MS 246 ng/mL 9 pH 6.0 1 10 1 SEE RESULT BELOW Name: AYANNA ALEJO : [address]: Fadumo Reed Acct: [id number] Unit: [id number] AGE: 57 Location: [facility] Re04/28/17 SEX: F Status: REG REF SPEC: [id number] JEAN: 04/28/17-[address]: Fadumo Reed REQ: [id number] RECD: 04/29/17-1213 STATUS: SOUT _ ORDERED: TP IMAGE ANAL, HPV/Thin Prep COMMENTS: [id number] FINAL DIAGNOSIS Negative for Intraepithelial lesion or Malignancy A. Ectocervical/Endocervical Specimen Adequacy: Satisfactory of evaluation Transformation zone component identified Patient Information: HPV: High risk HPV RNA testing regardless of pap results. Actual Specimen Date: 04/28/17 Last Menstrual Date: 03/28/17 Spec Date if unknown: 2012 Date Time Test Result Flag (u) Normal Range 04/28/17 1548 HPV RNA Negative Negative The high-risk HPV types detected by the assay include: 16, 18, 31, 33, 35, 39, 45, 51, 52, 56, 58, 59, 66, and 68. Signed (signature on file) MEGA Frias (ASCP) 04/30 1316 This Pap test was evaluated with the assistance of the Service Management Groupp Test Imaging System. Due to cytologic findings at the lighting adviser microscope, comprehensive manual rescreening by a Band Saw Operator Cake Cutting may be required. The Pap Smear is a screening test designed to aid in the detection of premalignant and malignant conditions of the uterine cervix. It is not a diagnostic procedure and should not be used as the sole means of detecting cervical cancer. Both false- positive and false- negative reports do occur. Depending on your risk status, a Pap smear should be obtained and evaluated every 1-3 years. END OF REPORT * ML=Testing performed at Main Lab DEPARTMENT OF PATHOLOGY, [address] [place] [address] Samuel Kimbrough M.D. Director [facility] # [id number] 2 The high-risk HPV types detected by the assay include: 16, 18, 31, 33, 35, 39, 45, 51, 52, 56, 58, 59, 66, and 68. 3 Test Performed by: [address] [address] 4 FASTING 10 HOUR 5 Therapeutic target for the treatment of diabetes Mellitus patients is <7% HBA1C, and in selective patients <6.0%.Please refer to [place] [employer] Diabetic care guidelines for further information. 6 RESULT: Small abnormality in gamma fraction. Test Performed by: [address] [address] 7 Tylenol 3 8 Metabolite of codeine REFERENCE VALUE Cutoff: 100 9 REFERENCE VALUE Cutoff: 100 10 Leticia Romero, MS Contin; Also a minor metabolite (10%) of codeine and can be seen in low concentrations (<2,000 ng/mL) with poppy seed ingestion. Procedures Date CPT Code Description Status 06/23/2017 47860 Biopsy Endometrial W/O Cervical Dilation Completed 05/27/2017 86185 Echography Transvaginal Completed Encounters Type Date Location Provider CPT E/M Dx Office Visit 05/27/2017 2:00p [facility] Hetal Tucker M.D. 14471 N95.0 Office Visit 04/28/2017 2:40p [facility] YOGESH Benton 28444 Z01.419 Plan of Care 05/27/2017 - Hetal Tucker M.D.N95.0 Postmenopausal bleedingComments:Reviewed sono, endometrium 4.5mm, just over 4mm. Uncertain if this represents irreg VB in perimenopause or PMB. Rec endometrial bx, pt agrees to schedule. Rec Ibuprofen one hour prior to appt.
--- OUTSIDE RECORDS SUMMARY | 2017-07-16 09:52 | XMS REPORT ---
:1960 External Reference #:[id number] Author Organization [facility] Address [address] [address] Phone [phone] Care Team Providers Name Role Phone Esdras Hyatt MD Primary Care Physician Unavailable Payers Type Date Identification Numbers Payment Provider Subscriber Medicaid Expires: 2016 Policy Number: [id number] Medicaid Ayanna Aleman Group Name: [id number] [address] PayID: [id number] [place] [address] Commercial Effective: 2016 Policy Number: Total Care/Mallory MNG Ayanna Durandl [id number] [facility] Name: [id number] [address] [address] PayID: [id number] [place] [address] Problems Date Description Provider Status Onset: 03/22/2016 Low back pain Esdras Hyatt M.D. Active Onset: 03/22/2016 Anxiety state Esdras Hyatt M.D. Active Onset: 03/22/2016 Abnormal glucose level Esdras Hyatt M.D. Active Onset: 05/01/2016 Iliotibial band friction syndrome Christian Caballero M.D.,FACP Onset: 05/22/2016 Extensor carpi radialis Christian Caballero tenosynovitis Patricia,FACP Note: with torn ligament right Onset: 05/22/2016 Vitamin D deficiency Christian Caballero M.D.,FACP Onset: 06/10/2016 Rupture of extensor tendons of Esdras Hyatt M.D. Active hand AND/OR wrist Onset: 08/14/2016 Thoracic and lumbosacral neuritis Esdras Hyatt M.D. Active Onset: 08/14/2016 Panic disorder without Esdras Hyatt M.D. Active agoraphobia Onset: 09/04/2016 Lumbar radiculopathy Esdras Hyatt M.D. Active Onset: 06/17/2017 Tachycardia Esdras Hyatt M.D. Active Onset: 06/11/2017 Gastroesophageal reflux disease Esdras Hyatt M.D. Active Onset: 06/11/2017 Lymphedema Esdras Hyatt M.D. Active Onset: 04/18/2017 Knee pain Esdras Hyatt M.D. Active Onset: 04/18/2017 Shoulder joint pain Esdras Hyatt M.D. Active Onset: 03/22/2016 Pain in axilla Esdras Hyatt M.D. 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 Cigarette Use Heavy tobacco smoker (more than [...] Form Strength Qnty SIG Indications Ordering Provider Triamterene/Berne 06/17/ Active Tablets 37.5-25mg 14tab 1/2 tab by I89.0 Esdras chlorothiazide 2017 s mouth every Pachika day in Patricia pettit the morning Amoxicillin/Clavu 06/11/ Hx Tablets 875-125mg 20tab 1 by mouth J06.9 [place] lanate Potassium 2017 - s twice a day Pachikara 06/21/ MEse 2016 Pantoprazole 06/11/ Active Tablets 20mg 30tab once daily K21.[address] elam in the [place]ika morning 1 , MEse before breakfast Mucinex 05/28/ Active Tablets 600mg 14tab 1 by mouth R05 Zsofia 2016 ER 12HR s twice a day Saurabh, INTERVENTIONAL RADIOLOGY RN Zyrtec Allergy 05/28/ Active Capsules 10mg 30cap take one J30.9 Zsofia 2016 s tablet by Saurabh, mouth in INTERVENTIONAL RADIOLOGY RN the evening Nasal [place] 12 05/28/ Active Solution 0.05% 30ml 2 sprays R05 Zsofia Hour 2017 each Saurabh, nostril 2x INTERVENTIONAL RADIOLOGY RN daily as needed for congestion Ibuprofen 08/14/ Active Tablets 600mg 90tab three times M51.16 Esdras 2016 s a day Patricia Hyatt Vitamin D 06/10/ Active Capsules [id number] 4caps 1 cap every E55.9 Esdras (Ergocalciferol) 2015 weekly Patricia Hyatt Oxycodone HCL 06/10/ Active Tablets 10mg 90tab 1 tab 8h as M66.231 Esdras 2015 s needed Patricia Hyatt Alprazolam / Active Tablets 0.5mg 120ta 1 tab four [place] 0000 bs times a day Olena as needed , MBrandenDBranden for anxiety. Gabapentin / Active Capsules 300mg 90cap 1 by mouth [place] 0000 s three times Pachikara a day Patricia Robitussin / Active Capsules 10-200mg 1 teaspoon Unknown Cough+Chest 0000 by mouth Congestion DM every 4-6 hours as needed Buspirone HCL / Active Tablets 7.5mg 30tab 1 by mouth Esdras 0000 s daily at [facility] bedtime , Patricia Nortriptyline HCL / Active Capsules 10mg 1-2 caps by Unknown 0000 mouth every night as directed Cyclobenzaprine / Active Tablets 10mg one by Unknown HCL 0000 mouth three times a day as needed spasm Diclofenac Sodium / Active Gel 1% apply 1 Unknown 0000 grams on hands twice daily Azithromycin 05/28/ Hx Tablets 250mg 6tabs take 2 tabs R05 Zsofia 2016 - on day one Saurabh, 06/10/ and 1 tabs INTERVENTIONAL RADIOLOGY RN 2017 daily for 4 days Azithromycin 12/25/ Hx Tablets 250mg 6tabs 2 tab today J06.9 Esdras 2016 - and then Pachikara 12/25/ 1tab daily , M.DBranden 2017 Amoxicillin/Clavu 12/25/ Hx Tablets 875-125mg 20tab 1 by mouth J06.9 Esdras lanate Potassium 2017 - s twice a day Pachikara 03/26/ , M.D. 2016 Amoxicillin 05/17/ Hx Capsules 500mg 15cap 1 by mouth Esdras 2015 - s three times [place] 06/27/ a day , M.DBranden 2015 Amoxicillin/Clavu 03/22/ Hx Tablets 500-125mg 14tab 1 by mouth J20.9 Esdras lanate Potassium 2016 - s twice a day Pachikara 05/01/ , M.Renard 2015 Nucynta / Hx Tablets 75mg 90tab 1 tab three Tao 0000 - s times a day Jeff, 06/11/ MILIEU TECHNICIAN 2016 Vitamin D / Hx Tablets 1000Unit 2 tabs Murphy (Cholecalciferol) 0000 - daily Renard Molina, 06/10/ fall/winter Patricia,[facility] 2016 Vital Signs Date Vital Result Comment 06/17/2017 Weight 192.00 lb Heart Rate 114 [...] 6 Anti Nuclear Antibody 0.1 U 7 Laboratory test finding 10/12/2016 Hemoglobin A1c (Glyco HGB) 6.0 % Less than 6.0 8 Glucose 87 mg/dL 70-100 9 Protein Electrophoresis 10/12/2016 Total Protein(Pep) 6.9 g/dL 6.3 - 7.9 Albumin 3.4 g/dL 3.4-4.7 Alpha-1 Globulin 0.3 g/dL 0.1-0.3 Alpha-2 Globulin 0.9 g/dL 0.6-1.0 Beta Globulin 0.8 g/dL 0.7-1.2 Gamma Globulin 1.4 g/dL 0.6-1.6 Albumin/Globulin Ratio 1.00 Impression See Comment 10 Drug Abuse 20 Urine 09/13/2016 Urine Amphetamine Negative ng/mL 11 Urine Barbiturates Negative ng/mL 12 Urine Benzodiazepines Presumptive Posi <SEE NOTE> 13 ng/mL Urine Cocaine Negative ng/mL 14 Urine Phencyclidine Negative ng/mL Cutoff: 25 Urine Tetrahydrocannabinol Negative ng/mL Cutoff: 50 15 Creatinine 62.4 mg/dL Specific [place] 1.012 pH 6.0 Oxidants Negative 16 Adulterants Comment Normal Codeine, Ur Not Detected ng/mL Cutoff: 25 17 Hezcyli-0-syuh-glucuronide, Ur Not Detected ng/mL 18 Morphine, Ur Not Detected ng/mL Cutoff: 25 19 Csyubjvt-3-hbyn-glucuronide, U Not Detected ng/mL 20 6-monoacetylmorphine, Ur Not Detected ng/mL Cutoff: 25 21 Hydrocodone, Ur Not Detected ng/mL Cutoff: 25 22 Norhydrocodone, Ur Not Detected ng/mL Cutoff: 25 23 Dihydrocodeine, Ur Not Detected ng/mL Cutoff: 25 24 Hydromorphone, Ur Not Detected ng/mL Cutoff: 25 25 Auxuyfbjgbqzq4tmkqdhhkmkpwhbo Not Detected ng/mL 26 Oxycodone, Ur Present ng/mL Cutoff: 25 27 Noroxycodone, Ur Present ng/mL Cutoff: 25 28 Oxymorphone, Ur Present ng/mL Cutoff: 25 29 Rssdfbsnwgb-6-xuvy-glucuronide Present ng/mL 30 Noroxymorphone, Ur Present ng/mL Cutoff: 25 31 Fentanyl, Ur Not Detected ng/mL Cutoff: 2 32 Norfentanyl, Ur Not Detected ng/mL Cutoff: 2 33 Meperidine, Ur Not Detected ng/mL Cutoff: 25 34 Normeperidine, Ur Not Detected ng/mL Cutoff: 25 35 Naloxone, Ur Not Detected ng/mL Cutoff: 25 36 Mgmnwmgv-6-uezn-glucuronide, U Not Detected ng/mL 37 Methadone, Ur [...] Ur Not Detected ng/mL Cutoff: 50 45 Cmtqigeemk-btpc-qgcvalzpwnp, U Not Detected ng/mL 46 Buprenorphine, Ur [...] Laboratory test finding 09/02/2016 Vitamin D Total 25(Oh) 23.0 ng/mL Low 30-50 Drug Abuse 20 Urine 06/27/2016 Urine Amphetamine Negative ng/mL 60 Urine Barbiturates Negative ng/mL 61 Urine Benzodiazepines Presumptive Posi <SEE NOTE> 62 ng/mL Urine Cocaine Negative ng/mL 63 Urine Phencyclidine Negative ng/mL Cutoff: 25 Urine Tetrahydrocannabinol Negative ng/mL Cutoff: 50 64 Creatinine 84.0 mg/dL Specific [place] 1.010 pH 7.0 Oxidants Negative 65 Adulterants Comment Normal Codeine, Ur Not Detected ng/mL Cutoff: 25 66 Eilovlj-7-yuhr-glucuronide, Ur Not Detected ng/mL 67 Morphine, Ur Not Detected ng/mL Cutoff: 25 68 Lsdnjhwu-8-zaai-glucuronide, U Not Detected ng/mL 69 6-monoacetylmorphine, Ur Not Detected ng/mL Cutoff: 25 70 Hydrocodone, Ur Not Detected ng/mL Cutoff: 25 71 Norhydrocodone, Ur Not Detected ng/mL Cutoff: 25 72 Dihydrocodeine, Ur Not Detected ng/mL Cutoff: 25 73 Hydromorphone, Ur Not Detected ng/mL Cutoff: 25 74 Avdssyverotog7rnybrhcikhjgxhf Not Detected ng/mL 75 Oxycodone, Ur Present ng/mL Cutoff: 25 76 Noroxycodone, Ur Present ng/mL Cutoff: 25 77 Oxymorphone, Ur Present ng/mL Cutoff: 25 78 Stdofykdbvb-2-atwa-glucuronide Present ng/mL 79 Noroxymorphone, Ur Present ng/mL Cutoff: 25 80 Fentanyl, Ur Not Detected ng/mL Cutoff: 2 81 Norfentanyl, Ur Not Detected ng/mL Cutoff: 2 82 Meperidine, Ur Not Detected ng/mL Cutoff: 25 83 Normeperidine, Ur Not Detected ng/mL Cutoff: 25 84 Naloxone, Ur Not Detected ng/mL Cutoff: 25 85 Jlfycuke-3-mwtt-glucuronide, U Not Detected ng/mL 86 Methadone, Ur Not Detected ng/mL Cutoff: 25 87 Eddp, Ur Not Detected ng/mL Cutoff: 25 88 Propoxyphene, Ur Not Detected ng/mL Cutoff: 25 89 Norpropoxyphene, Ur Not Detected ng/mL Cutoff: 25 90 Tramadol, Ur Not Detected ng/mL Cutoff: 25 91 O-desmethyltramadol, Ur Not Detected ng/mL Cutoff: 25 92 Tapentadol, Ur Not Detected ng/mL Cutoff: 25 93 N-desmethyltapentadol, Ur Not Detected ng/mL Cutoff: 50 94 Sgjhgiczsq-djgn-rtuhzjlzfkt, U Not Detected ng/mL 95 Buprenorphine, Ur Not Detected ng/mL Cutoff: 5 96 Norbuprenorphine, Ur Not Detected ng/mL Cutoff: 5 97 Norbuprenorphine glucuronide Not Detected ng/mL Cutoff: 20 98 Opioid Interpretation See Comment 99 Benzodiazepine Confirm Urine 06/27/2016 Urine Lorazepam GC/MS Negative ng/ mL 100 Urine Nordiazepam GC/MS Negative ng/mL 101 Urine Oxazepam GC/MS Negative ng/mL 102 Urine Temazepam GC/MS Negative ng/mL 103 Ur Oh Ethyl Flurazepam GC/MS Negative ng/mL 104 Ur 7 NH Clonazepam GC/MS Negative ng/mL 105 Ur 7 NH Flunitrazepam GC/MS Negative ng/mL Cutoff: 50 Ur Alpha Oh Alprazolam GC/MS 363 ng/mL 106 Ur Alpha Oh Triazolam GC/MS Negative ng/mL 107 Ur Benzodiazepine Interp See Comment 108 Basic Metabolic Panel 05/08/2016 Sodium 141 mmol/L 133-145 Potassium 4.2 mmol/L 3.5-5.0 Chloride 107 mmol/L 101-111 Co2 Carbon Dioxide 28 mmol/L 22-32 Anion Gap 6 mmol/L 2-11 Glucose 123 mg/dL High 70-100 Blood Urea Nitrogen 15 mg/dL 6-24 Creatinine 0.81 mg/dL 0.51-0.95 BUN/Creatinine Ratio 18.5 8-20 Calcium 9.3 mg/dL 8.6-10.3 Egfr Non- 73.7 >60 Egfr 94.8 >60 109 CBC Auto Diff 05/08/2016 White Blood Count [...] 0-2 Nucleated Red Blood Cells % 0.1 Protein Electrophoresis 05/08/2016 Total Protein(Pep) 6.7 g/dL 6.3 - 7.9 Albumin 3.5 g/dL 3.4-4.7 Alpha-1 Globulin 0.3 g/dL 0.1-0.3 Alpha-2 Globulin 0.8 g/dL 0.6-1.0 Beta Globulin 0.9 g/dL 0.7-1.2 Gamma Globulin 1.3 g/dL 0.6-1.6 Albumin/Globulin Ratio 1.10 Impression See Comment 110 Immunofixation See Comment 111 Laboratory test finding 05/08/2016 Vitamin D Total 17.6 ng/mL Low 30-50 25(Oh) Benzodiazepine Confirm 03/22/2016 Urine Lorazepam Negative ng/mL 112 Urine GC/MS Urine Nordiazepam GC/MS Negative ng/mL 113 Urine [...] Cutoff: 50 125 Creatinine 75.2 mg/dL Specific [place] 1.009 pH 6.5 Oxidants Negative 126 Adulterants Comment Normal Codeine, Ur Not Detected ng/mL Cutoff: 25 127 Hyfskvk-8-djgp-glucuronide, Ur Not Detected ng/mL 128 Morphine, Ur Not Detected ng/mL Cutoff: 25 129 Cfpxuuvz-4-kjlc-glucuronide, U Not Detected ng/mL 130 6-monoacetylmorphine, Ur Not Detected ng/mL Cutoff: 25 131 Hydrocodone, Ur Not Detected ng/mL Cutoff: 25 132 Norhydrocodone, Ur Not Detected ng/mL Cutoff: 25 133 Dihydrocodeine, Ur Not Detected ng/mL Cutoff: 25 134 Hydromorphone, Ur Not Detected ng/mL Cutoff: 25 135 Ejqkrcqfjzgat8hbwzevarkwuffhb Not Detected ng/mL 136 Oxycodone, Ur Not Detected ng/mL Cutoff: 25 137 Noroxycodone, Ur Not Detected ng/mL Cutoff: 25 138 Oxymorphone, Ur Not Detected ng/mL Cutoff: 25 139 Uboevfxoecg-9-wmon-glucuronide Not Detected ng/mL 140 Noroxymorphone, Ur Not Detected ng/mL Cutoff: 25 141 Fentanyl, Ur Not Detected ng/mL Cutoff: 2 142 Norfentanyl, Ur Not Detected ng/mL Cutoff: 2 143 Meperidine, Ur Not Detected ng/mL Cutoff: 25 144 Normeperidine, Ur Not Detected ng/mL Cutoff: 25 145 Naloxone, Ur Not Detected ng/mL Cutoff: 25 146 Bmudklmh-1-zxcu-glucuronide, U Not Detected ng/mL 147 Methadone, Ur [...] N-desmethyltapentadol, Ur Present ng/mL Cutoff: 50 155 Vdtjxfhyge-xwet-xbqcexdnrwg, U Present ng/mL 156 Buprenorphine, Ur Not Detected ng/mL Cutoff: 5 157 Norbuprenorphine, Ur Not Detected ng/mL Cutoff: 5 158 Norbuprenorphine glucuronide Not Detected ng/mL Cutoff: 20 159 Opioid Interpretation See Comment 160 1 ADDITIONAL INFORMATION This test was developed and its performance characteristics determined by [facility] in a manner consistent with CLIA requirements. This test has not been cleared or approved by the U.S. Food and Drug Administration. Test Performed by: [place] [address] 2 Desirable <150 Borderline high 150-199 High 200-499 Very High >500 3 Desirable <200 Borderline high 200-239 High >239 4 Low <40 Desirable: 40-60 High: >60 5 Desirable: <100 mg/dL Near Optimal: 100-129 mg/dL Borderline High: 130-159 mg/dL High: 160-189 mg/dL Very High: >189 mg/dL 6 Test Performed by: [address] [address] 7 REFERENCE VALUE <=1.0 (Negative) Test Performed by: [address] [place] [address] 8 Therapeutic target for the treatment of diabetes Mellitus patients is <7% HBA1C, and in selective patients <6.0%.Please refer to [place] [employer] Diabetic care guidelines for further information. 9 FASTING 10 HOUR 10 RESULT: Small abnormality in gamma fraction. Test Performed by: [facility] - [address] [address] 11 REFERENCE VALUE Cutoff: 500 12 REFERENCE [...] REFERENCE VALUE Cutoff: 100 19 Leticia Romero, MS Contin; Also a minor metabolite (10%) of codeine and can be seen in low concentrations (<2,000 ng/mL) with poppy seed ingestion. 20 Metabolite of morphine REFERENCE VALUE Cutoff: 100 21 Metabolite of heroin 22 Lortab, Mccoll, Vicodin; Also a very minor metabolite of [...] and several metabolites (noroxycodone, oxymorphone, noroxymorphone, and mqmyzmrijmi-7-yoip-glucuronide). Suspect use of oxycodone or possibly oxycodone and oxymorphone within the past three days. ADDITIONAL INFORMATION This test was developed and its performance characteristics determined by [facility] in a manner consistent with CLIA requirements. This test has not been cleared or approved by the U.S. Food and Drug Administration. Test Performed by: [facility] [place] [address] Agent: Andrew Lam II, M.D., Ph.D. 51 REFERENCE VALUE Cutoff: 100 52 REFERENCE VALUE Cutoff: 100 53 REFERENCE VALUE Cutoff: 100 54 REFERENCE VALUE Cutoff: 100 55 REFERENCE VALUE Cutoff: 100 56 REFERENCE VALUE Cutoff: 100 57 REFERENCE VALUE Cutoff: 100 58 REFERENCE VALUE Cutoff: 100 59 Positive. 0-DK-Upjjnnyowd testing performed at a x2 dilution; limit of quantitation is elevated. ADDITIONAL INFORMATION This report is intended for use in clinical monitoring and management of patients. It is not intended for use in employment-related testing. This test was developed and its performance characteristics determined by [facility] in a manner consistent with CLIA requirements. This test has not been cleared or approved by the U.S. Food and Drug Administration. Test Performed by: [facility] - [address] [address] Agent: Andrew Lam II, M.D., Ph.D. 60 REFERENCE VALUE Cutoff: 500 61 REFERENCE VALUE Cutoff: 200 62 Presumptive Positive Drug confirmation to follow. Presumptive Positive means that the screening method is positive, but the test needs to be run by a confirmatory method before being finalized. REFERENCE VALUE Cutoff: 100 63 REFERENCE VALUE Cutoff: 150 64 ADDITIONAL INFORMATION This report is intended for use in clinical monitoring or management of patients. It is not intended for use in employment-related testing. 65 REFERENCE VALUE Cutoff: 200 mg/L 66 Tylenol 3 67 Metabolite of codeine REFERENCE VALUE Cutoff: 100 68 Leticia Romero, MS Contin; Also a minor metabolite (10%) of codeine and can be seen in low concentrations (<2,000 ng/mL) with poppy seed ingestion. 69 Metabolite of morphine REFERENCE VALUE Cutoff: 100 70 Metabolite of heroin 71 Lortab, Mccoll, Vicodin; Also a very minor metabolite of codeine and impurity (<1%) of oxycodone. 72 Metabolite of hydrocodone 73 Metabolite of hydrocodone 74 Dilaudid, Exalgo; Also a metabolite of hydrocodone and a minor (<5%) metabolite of morphine. 75 Metabolite of hydromorphone REFERENCE VALUE Cutoff: 100 76 Endocet, Percocet, Oxycontin 77 Metabolite of oxycodone 78 Numorphan, Opana; Also a metabolite of oxycodone. 79 Metabolite of oxymorphone REFERENCE VALUE Cutoff: 100 80 Metabolite of oxymorphone 81 Actiq, Duragesic, Fentora 82 Metabolite of fentanyl 83 Demerol 84 Metabolite of meperidine 85 Narcan 86 Metabolite of naloxone REFERENCE VALUE Cutoff: 100 87 Dolophine 88 Metabolite of methadone 89 Darvon, Darvocet 90 Metabolite of propoxyphene 91 Tradol, Ultram, Ultracet 92 Metabolite of tramadol 93 Nucynta 94 Metabolite of tapentadol 95 Metabolite of tapentadol REFERENCE VALUE Cutoff: 100 96 Buprenex, Suboxone 97 Metabolite of buprenorphine 98 Metabolite of buprenorphine 99 Test detected the presence of oxycodone and several metabolites (noroxycodone, oxymorphone, noroxymorphone, and fpwenzxztmn-1-ostt-glucuronide). Suspect use of oxycodone or possibly oxycodone and oxymorphone within the past three days. ADDITIONAL INFORMATION This test was developed and its performance characteristics determined by [facility] in a manner consistent with CLIA requirements. This test has not been cleared or approved by the U.S. Food and Drug Administration. Test Performed by: [facility] [employer] - [address] Agent: Andrew Lam II, M.D., Ph.D. 100 REFERENCE VALUE Cutoff: 100 101 REFERENCE VALUE Cutoff: 100 102 REFERENCE VALUE Cutoff: 100 103 REFERENCE VALUE Cutoff: 100 104 REFERENCE VALUE Cutoff: 100 105 REFERENCE VALUE Cutoff: 100 106 REFERENCE VALUE Cutoff: 100 107 REFERENCE VALUE Cutoff: 100 108 Positive. 5-SY-Bjwhlvqhxxkip testing performed at a x2 dilution; limit of quantitation is elevated. ADDITIONAL INFORMATION This report is intended for use in clinical monitoring and management of patients. It is not intended for use in employment-related testing. Test Performed by: [facility] [employer] - [address] Agent: Andrew Lam II, M.D., Ph.D. 109 Because ethnic data is not always readily [...] 15-29 5 Kidney failure <15 (or dialysis) 110 Small abnormality in gamma fraction. See Immunofixation. Test Performed by: [place] [address] Agent: Andrew Lam II, M.D., Ph.D. 111 Small monoclonal IgG lambda within the gamma fraction. Suggest repeat testing in 6-12 months if clinically indicated. Test Performed by: [place] [address] Agent: Andrew Lam II, M.D., Ph.D. 112 REFERENCE VALUE Cutoff: 100 113 REFERENCE [...] use in employment-related testing. Test Performed by: [address] [address] Agent: Andrew Lam II, M.D., Ph.D. 121 REFERENCE [...] REFERENCE VALUE Cutoff: 100 129 Leticia Romero, MS Contin; Also a minor metabolite (10%) of codeine and can be seen in low concentrations (<2,000 ng/mL) with poppy seed ingestion. 130 Metabolite of morphine REFERENCE VALUE Cutoff: 100 131 Metabolite of heroin 132 Lortab, Mccoll, Vicodin; Also a very minor metabolite of [...] and two of its metabolites (n-desmethyltapentadol and hvrjyyiybd-srvv-eqsvggkneif). Suspect use of tapentadol within the past three days. ADDITIONAL INFORMATION This test was developed and its performance characteristics determined by [facility] in a manner consistent with CLIA requirements. This test has not been cleared or approved by the U.S. Food and Drug Administration. PDF Report available at: [email or web address] Test Performed by: [address] [address] Agent: Andrew Lam II, M.D., Ph.D. Procedures Date CPT Code Description Status 07/28/2014 Mammogram Completed 02/06/2012 Colonoscopy Completed Encounters Type Date Location Provider CPT E/M Dx Office Visit 06/11/2017 4:00p [facility] Esdras Hyatt, [address] J06.9 - Wendi Gomez F41.9 I89.0 K21.9 Office Visit 05/28/2017 2:20p [facility] - Sven Wiley, [facility] [address] J30.9 F17.210 Office Visit 04/18/2017 10:00a [facility] Esdras Hyatt, [address] M25.512 Medicine - [address] M.DBranden M25.562 Office Visit 04/17/2017 2:00p [facility] [place] [address] M25.512 Hu M77.11 G56.31 G56.32 M77.12 Office Visit 04/14/2017 1:15p [facility] Caesar [place], [address] M22.2x1 Of Hu BROWN M22.2x2 Office Visit 04/10/2017 4:20p [facility] Esdras Hyatt, [address] M25.561 Medicine - [address] M.DBranden M25.562 M77.11 M25.512 Office Visit 03/26/2017 2:00p [facility] Esdras Hyatt, [address] Z00.01 Lety Adame M.D. F17.210 Z12.39 E55.9 Office Visit 12/25/2016 11:40a [facility] Esdras Hyatt, [address] E55.9 - Wendi Gomez R73.9 Z11.59 J06.9 Z12.39 Z12.4 F17.210 Office Visit 11/06/2016 4:00p [facility] Esdras Hyatt, [address] D47.2 - Wendi Gomez M51.16 F41.0 Office Visit 09/04/2016 4:00p [facility] Esdars Hyatt, [address] M54.16 Lety Adame M.D. E55.9 Office Visit 08/14/2016 9:40a [facility] Esdras Hyatt, [address] M66.231 Lety Adame M.D. M51.16 F41.0 Office Visit 07/09/2016 4:00p [facility] Esdras Hyatt M.D. 71708 M54.5 Medicine - [address] Office Visit 06/27/2016 4:00p [facility] Esdras Hyatt M.D. 46264 F41.0 Medicine - [address] M54.5 Z91.013 Office Visit 06/10/2016 1:40p [facility] Esrdas Hyatt M.D. 33150 M54.5 Medicine - [address] F41.0 M66.231 E55.9 Office Visit 05/22/2016 4:20p [facility] Murphy Molina, [address] M66.231 Medicine - [address] [place] Gomez,FACP M47.26 M76.32 E55.9 D47.2 R73.01 Office Visit 05/01/2016 3:40p [facility] Murphy Molina, [address] M54.5 - [place] Gomez,FACP M76.32 E55.9 Office Visit 03/22/2016 9:00a [facility] Esdras Hyatt, 28517 M79.621 Medicine - [address] Sincere Gomez M54.5 F41.9 J20.9 R73.9 M25.522 Plan of Care Future Appointment(s):06/26/2017 11:20 am - Esdras Hyatt M.D. at [facility] - [address]07/09/2017 1:20 pm - [facility] Esdras Hyatt M.D.I89.0 Lymphedema , not elsewhere classifiedNew Medication:Triamterene/Hydrochlorothiazide 37.5- 25 mgNew Xrays:VL Lower Ext Veins RightNew Orders:EchocardiogramComments:If the swelling get worse need to call meFollow up:1 weekR00.0 Tachycardia, unspecifiedNew Orders:Holter Monitor
[2017-07-16] MEDS ORDERED: NS 0.9% 1000 ML* 1,000 ML IV SCH (10:30)
[2017-07-16 11:02] LABS: Hematocrit 41 % (35-47); Hemoglobin 13.8 g/dl (12.0-16.0); Mean Corpuscular HGB Conc 34 g/dl (31-36); Mean Corpuscular Hemoglobin 31 pg (27-31); Mean Corpuscular Volume 91 fL (80-97); Mean Platelet Volume 9 um3 (7.4-10.4); Red Blood Count 4.52 10^6/ul (4.0-5.4); Red Cell Distribution Width 14 % (10.5-15); White Blood Count 7.3 10^3/ul (3.5-10.8)
[2017-07-16 11:20] LABS: Ammonia 35 mol/L (16-53)
[2017-07-16 11:22] LABS: Albumin 3.7 g/dL (3.2-5.2); BUN/Creatinine Ratio 17.9 (8-20); C Reactive Protein 13.15 mg/L (< 5.00); Calcium 8.7 mg/dL (8.6-10.3); EGFR African American 98.6 (>60); EGFR Non-African American 76.7 (>60); Globulin 2.9 g/dL (2-4); Potassium 3.8 mmol/L (3.5-5.0); Total Bilirubin 0.3 mg/dL (0.2-1.0); Total Protein 6.6 g/dL (6.4-8.9)
[2017-07-16 11:23] LABS: Troponin I 0.01 ng/mL (<0.04)
[2017-07-16 11:25] LABS: B Type Natriuretic Peptide 69 pg/mL
[2017-07-16 11:48] LABS: TSH (Thyroid Stimulating Horm) 2.74 mcIU/mL (0.34-5.60)
--- NOTE | 2017-07-16 12:30 | RAD ---
INDICATION: Chest pain and edema COMPARISON: Chest x-ray dated July 08, 2017 TECHNIQUE: Single AP portable view of the chest was obtained. FINDINGS: Image quality is compromised due to the relative inferiority of a portable chest x-ray. The heart and mediastinum exhibit normal size and contour. The lungs are grossly clear. There is no evidence of a large pleural effusion. Visualized bones are normal for the patient's age. IMPRESSION: No radiographic evidence for acute cardiopulmonary abnormality on this portable chest x-ray.
[2017-07-16 12:33] LABS: Folate 10.88 ng/mL (>3.99)
--- NOTE | 2017-07-16 12:39 | RAD ---
INDICATION: Pain and swelling right lower extremity. COMPARISON: July 08, 2017 TECHNIQUE: Duplex interrogation of the Lowerextremity was performed. FINDINGS: Deep veins: The common femoral, great saphenous, profunda femoris, proximal, mid, and distal deep femoral, popliteal, posterior tibial, and peroneal veins are patent. There is normal compressibility, augmentation, and phasic flow. Superficial veins: There are no findings of superficial thrombophlebitis. Popliteal fossa:There is no evidence of a popliteal cyst. Soft tissues:There are no soft tissue abnormalities. IMPRESSION: NORMAL EXAMINATION UNCHANGED FROM JULY 08, 2017. NO EVIDENCE OF DEEP VENOUS THROMBOSIS
[2017-07-16 14:07] LABS: Urine Bilirubin Negative (Negative); Urine Glucose Negative (Negative); Urine Nitrite Negative (Negative)
[2017-07-16] MEDS ORDERED: Al Hydrox/Mg Hydrox/Simet LIQ* 30 ML UDC PO PRN (14:11)
[2017-07-16] MEDS ORDERED: oxyCODONE/Acetamin 5/325 MG* TAB PO PRN (14:11)
[2017-07-16] MEDS ORDERED: Acetaminophen TAB* 325 MG PO PRN (14:11)
[2017-07-16] MEDS ORDERED: Ibuprofen TAB* 600 MG PO PRN (14:15)
[2017-07-16] MEDS ORDERED: Nicotine Inhaler* 10 MG AMP INH PRN (15:30)
--- NOTE | 2017-07-16 17:54 | ED ---
Roxie Johnson Julia, scribed for Andrew Andujar MD on 07/16/17 at 1053 . HPI Cardiac - HPI Summary HPI Summary: This patient is a 57 year old F presenting to [facility] with a chief complaint of intermittent bilateral lower extremity pain and edema since mid May. Patient reports that her feet feel like bricks with a deep throbbing pain worse in her RLE. The patient rates the pain 4/10 in severity. Symptoms aggravated by movement. Symptoms alleviated by nothing. Patient reports episodic burning chest pain that radiated to her jaw, palpitations, difficulty bending knees, and SOB. - History of Current Complaint Chief Complaint: EDExtremityLower Stated Complaint: SENT FROM DOC OFFICE Time Seen by Provider: 07/16/17 10:15 Hx Obtained From: Patient Onset/Duration: Started Weeks Ago Timing: Intermittent Current Severity: Mild Pain Intensity: 4 Pain Scale Used: 0-10 Numeric Character: Burning Aggravating Factor(s): Movement Alleviating Factor(s): Nothing Associated Signs and Symptoms: Positive: Chest Pain, Shortness of Breath, Swelling - bilateral lower extremity, Palpitations - Allergy/Home Medications Allergies/Adverse Reactions: Allergies Allergy/AdvReac Type Severity Reaction Status Date / Time Fish Allergy Allergy Anaphylatic Verified 07/16/17 09:[address] CONTRAST Allergy Anaphylatic Uncoded 10/23/16 14:01 Shock SEAFOOD Allergy Anaphylatic Uncoded 10/23/16 14:01 Shock PMH/Surg Hx/FS Hx/Imm Hx Endocrine/Hematology History: Denies: Hx Diabetes Cardiovascular History: Reports: Hx Hypertension - pain induced Denies: Hx Pacemaker/ICD History: Denies: Hx Renal Disease Musculoskeletal History: Reports: Hx Back Problems - chronic pain, Hx Orthopedic Injury - right arm torn tendons Sensory History: Denies: Hx Hearing Aid Psychiatric History: Reports: Hx Panic Disorder - PANIC DISORDER - Surgical History Surgery Procedure, Year, and Place: TUBAL LIGATION 05/1992. RIGHT ARM SURGERY Infectious Disease History: No Infectious Disease History: Denies: Traveled Outside the [place] in Last 30 Days - Family History Known Family History: Positive: Cardiac Disease - paternal - Social History Alcohol Use: None Hx Substance Use: No Substance Use Type: Reports: None Hx Tobacco Use: Yes Smoking Status (MU): Current Every Day Smoker Type: Cigarettes Amount Used/How Often: 1/2 PPD Have You Smoked in the Last Year: Yes Review of Systems Negative: Fever Positive: Palpitations, Chest Pain Positive: Shortness Of Breath Positive: Other - bilateral LE pain and edema, difficulty bending knees All Other Systems Reviewed And Are Negative: Yes Physical Exam - Summary Physical Exam Summary: General: well-appearing, no pain distress Skin: warm, color reflects adequate perfusion, dry Head: normal Eyes: EOMI, DAQUAN ENT: normal Neck: supple, nontender Respiratory: CTA, breath sounds present Cardiovascular: RRR Abdomen: soft, nontender Bowel: present Musculoskeletal strength/ROM intact, bilateral pedal edema right greater than left Neurological: normal, sensory/motor intact, A&O x3 Psychological: affect/mood appropriate Triage Information Reviewed: Yes Vital Signs On Initial Exam: Initial Vitals Temp Pulse Resp BP Pulse Ox 98.5 F 111 17 136/90 98 07/16/17 09:41 07/16/17 09:41 07/16/17 09:41 07/16/17 09:41 07/16/17 09:41 Vital Signs Reviewed: Yes Musculoskeletal: Positive: Edema Left, Edema Right - greater Diagnostics - Vital Signs Vital Signs Temp Pulse Resp BP Pulse Ox 07/16/17 09:41 98.5 F 111 17 136/90 98 - Laboratory Lab Results: Lab Results 07/16/17 07/16/17 07/16/17 Range/Units 10:43 10:43 10:43 WBC (3.5-10.8) 10^3/ul RBC (4.0-5.4) 10^6/ul Hgb (12.0-16.0) g/dl Hct (35-47) % MCV (80-97) fL MCH (27-31) pg MCHC (31-36) g/dl RDW (10.5-15) % Plt Count (150-450) 10^3/ul MPV (7.4-10.4) um3 Neut % (Auto) (38-83) % Lymph % (Auto) (25-47) % [place] % (Auto) (1-9) % Eos % (Auto) (0-6) % Baso % (Auto) (0-2) % Absolute Neuts (auto) (1.5-7.7) 10^3/ul Absolute Lymphs (auto) (1.0-4.8) 10^3/ul Absolute Monos (auto) (0-0.8) 10^3/ul Absolute Eos (auto) (0-0.6) 10^3/ul Absolute Basos (auto) (0-0.2) 10^3/ul Absolute Nucleated RBC 10^3/ul Nucleated RBC % INR (Anticoag Therapy) 0.89 (0.77-1.02) APTT 35.0 (26.0-36.3) seconds D-Dimer, Quantitative < 200 (Less Than 230) ng/mL Sodium 139 (133-145) mmol/L Potassium 3.8 (3.5-5.0) mmol/L Chloride 107 (101-111) mmol/L Carbon Dioxide 28 (22-32) mmol/L Anion Gap 4 (2-11) mmol/L BUN 14 (6-24) mg/dL Creatinine 0.78 (0.51-0.95) mg/dL Est GFR ( Amer) 98.6 (>60) Est GFR (Non-Af Amer) 76.7 (>60) BUN/Creatinine Ratio 17.9 (8-20) Glucose 96 (70-100) mg/dL Lactic Acid (0.5-2.0) mmol/L Calcium 8.7 (8.6-10.3) mg/dL Magnesium 2.0 (1.9-2.7) mg/dL Total Bilirubin 0.30 (0.2-1.0) mg/dL AST 13 (13-39) U/L ALT 15 (7-52) U/L Alkaline Phosphatase 55 (34-104) U/L Ammonia 35 (16-53) mol/L Total Creatine Kinase 83 (10-223) U/L CK-MB (CK-2) 3.2 (0.6-6.3) ng/mL Troponin I 0.01 (<0.04) ng/mL C-Reactive Protein 13.15 H (< 5.00) mg/L B-Natriuretic Peptide 69 ( - 100) pg/mL Total Protein 6.6 (6.4-8.9) g/dL Albumin 3.7 (3.2-5.2) g/dL Globulin 2.9 (2-4) g/dL Albumin/Globulin Ratio 1.3 (1-3) Lipase 14 (11.0-82.0) U/L Vitamin B12 365 (180-914) pg/mL 25-OH Vitamin D Total 20.2 (20-50) ng/mL Folate 10.88 (>3.99) ng/mL TSH 2.74 (0.34-5.60) mcIU/mL Cortisol 1.72 mcg/dL Urine Color Urine Appearance Urine pH (5-9) Ur Specific Halliday (1.010-1.030) Urine Protein (Negative) Urine Ketones (Negative) Urine Blood (Negative) Urine Nitrate (Negative) Urine Bilirubin (Negative) Urine Urobilinogen (Negative) Ur Leukocyte Esterase (Negative) Urine Glucose (Negative) 07/16/17 07/16/17 07/16/17 Range/Units 10:43 10:43 13:05 WBC 7.3 (3.5-10.8) 10^3/ul RBC 4.52 (4.0-5.4) 10^6/ul Hgb 13.8 (12.0-16.0) g/dl Hct 41 (35-47) % MCV 91 (80-97) fL MCH 31 (27-31) pg MCHC 34 (31-36) g/dl RDW 14 (10.5-15) % Plt Count 159 (150-450) 10^3/ul MPV 9 (7.4-10.4) um3 Neut % (Auto) 71.5 (38-83) % Lymph % (Auto) 21.4 L (25-47) % [place] % (Auto) 5.2 (1-9) % Eos % (Auto) 1.6 (0-6) % Baso % (Auto) 0.3 (0-2) % Absolute Neuts (auto) 5.2 (1.5-7.7) 10^3/ul Absolute Lymphs (auto) 1.6 (1.0-4.8) 10^3/ul Absolute Monos (auto) 0.4 (0-0.8) 10^3/ul Absolute Eos (auto) 0.1 (0-0.6) 10^3/ul Absolute Basos (auto) 0 (0-0.2) 10^3/ul Absolute Nucleated RBC 0 10^3/ul Nucleated RBC % 0 INR (Anticoag Therapy) (0.77-1.02) APTT (26.0-36.3) seconds D-Dimer, Quantitative (Less Than 230) ng/mL Sodium (133-145) mmol/L Potassium (3.5-5.0) mmol/L Chloride (101-111) mmol/L Carbon Dioxide (22-32) mmol/L Anion Gap (2-11) mmol/L BUN (6-24) mg/dL Creatinine (0.51-0.95) mg/dL Est GFR ( Amer) (>60) Est GFR (Non-Af Amer) (>60) BUN/Creatinine Ratio (8-20) Glucose (70-100) mg/dL Lactic Acid 1.2 (0.5-2.0) mmol/L Calcium (8.6-10.3) mg/dL Magnesium (1.9-2.7) mg/dL Total Bilirubin (0.2-1.0) mg/dL AST (13-39) U/L ALT (7-52) U/L Alkaline Phosphatase (34-104) U/L Ammonia (16-53) mol/L Total Creatine Kinase (10-223) U/L CK-MB (CK-2) (0.6-6.3) ng/mL Troponin I (<0.04) ng/mL C-Reactive Protein (< 5.00) mg/L B-Natriuretic Peptide ( - 100) pg/mL Total Protein (6.4-8.9) g/dL Albumin (3.2-5.2) g/dL Globulin (2-4) g/dL Albumin/Globulin Ratio (1-3) Lipase (11.0-82.0) U/L Vitamin B12 (180-914) pg/mL 25-OH Vitamin D Total (20-50) ng/mL Folate (>3.99) ng/mL TSH (0.34-5.60) mcIU/mL Cortisol mcg/dL Urine Color Yellow Urine Appearance Clear Urine pH 5.0 (5-9) Ur Specific Halliday 1.009 L (1.010-1.030) Urine Protein Negative (Negative) Urine Ketones Negative (Negative) Urine Blood Negative (Negative) Urine Nitrate Negative (Negative) Urine Bilirubin Negative (Negative) Urine Urobilinogen Negative (Negative) Ur Leukocyte Esterase Negative (Negative) Urine Glucose Negative (Negative) Result Diagrams: 07/16/17 10:43 07/16/17 10:43 Lab Statement: Any lab studies that have been ordered have been reviewed, and results considered in the medical decision making process. - Radiology Chest Radiology Interpretation Completed By: Radiologist - No radiographic evidence for acute cardiopulmonary abnormality on this portable chest x-ray. ED Physician has reviewed this report. - EKG 9:58 Cardiac Rate: Tachycardia EKG Rhythm: Sinus Tachycardia - at [address] Segment: Normal Ectopy: None - Additional Comments Diagnostic Additional Comments: Venous Doppler US reveals NORMAL EXAMINATION UNCHANGED FROM JULY 08, 2017. NO EVIDENCE OF DEEP VENOUS THROMBOSIS. ED Physician has reviewed this report. Disposition - Course Course Of Treatment: DISCUSSED WITH DR ELISE. ADMIT HOSPITALIST. - Diagnoses Provider Diagnoses: Edema, Chest pain Discharge - Discharge Plan Condition: Stable Disposition: ADMITTED TO [facility] documentation as recorded by the Roxie viramontes Julia accurately reflects the service I personally performed and the decisions made by me, Andrew Andujar MD.
[2017-07-16] MEDS: ALPRAZolam TAB* 0.5 MG PO PRN (18:22)
[2017-07-16] MEDS: oxyCODONE TAB* 5 MG TAB PO PRN (18:22)
[2017-07-16] MEDS: Cyclobenzaprine TAB* 10 MG PO PRN (18:22)
--- NOTE | 2017-07-16 20:29 | HP ---
CC: Dr. Hyatt; Dr. Jones * HISTORY AND PHYSICAL: DATE OF ADMISSION: 07/16/17 PRIMARY CARE PROVIDER: Dr. Hyatt. KNOCKDOWN MAN: Dr. Jonse. CHIEF COMPLAINT: Chest pain and leg edema. HISTORY OF PRESENT ILLNESS: Ayanna Aleman is a 57-year-old female who was seen by Dr. Jones in the mid of June for chest pain that occurred on 06/28/17. The patient also noted that she had leg swelling on May of 2017 that improved after she was started on Dyazide by her primary care provider. The patient stated that the patient's leg edema appears and disappears almost "instantly." She stated that today in the morning, her right ankle was "like a balloon," but now it improved and it is basically back to baseline with minimal to trace edema in right ankle. She also stated that on June 28 what she thought was an anxiety attack, which she gets sometimes. She had upper substernal chest pain, nonradiating, across an anterior chest, lasting approximately 45 minutes that resolved after Xanax taking. The patient stated she did not have shortness of breath and pain was not pleuritic. She said that after she spoke with her friends, she diagnosed herself with a heart attack. She saw Dr. Jones on 07/11/17 who noted that the patient is tachycardic and on Holter monitor was noted to have normal sinus rhythm with infrequent PVCs that was on 06/25/17. The patient also had a Doppler study of bilateral lower extremities that was negative for DVT at that point. She was scheduled for an outpatient cardiac stress test, which was pharmacologic due to her chronic joint complaints that somehow was scheduled today and the patient missed it. Subsequently, she called Dr. Jones's office and was advised to come into the ED for evaluation. Here, she has no complaints. She has aches and pains, which is chronic. She in fact was evaluated in the past with chronic pain syndrome. She is going to be placed on overnight observation with diagnoses of chest pain and leg edema for further evaluation with cardiac stress test as documented by Dr. Jones. PAST MEDICAL HISTORY: Includes: 1. Tachycardia. 2. Gastroesophageal reflux disease. 3. History of lymphedema. 4. History of knee pain. 5. History of thoracic and lumbosacral neuritis. 6. History of ruptured tendons of the hands in the past. 7. Vitamin D deficiency. 8. Extensive carpi radialis tenosynovitis with torn ligament on the right. 9. History of "abnormal glucose levels." MEDICATIONS: Includes: 1. Acetaminophen on a p.r.n. basis. 2. Voltaren gel 1% one application b.i.d. to achy joints. 3. Flexeril 10 mg 3 times a day p.r.n. 4. Pamelor 10 to 20 mg at bedtime. 5. BuSpar 7.5 mg at bedtime. 6. Robitussin Cough one teaspoon every 4 hours p.r.n. 7. Gabapentin 300 mg 3 times a day. 8. Oxycodone 10 mg every 8 hours p.r.n. 9. Vitamin D3 50,000 units weekly. 10. Nasonex nasal spray, 2 sprays both nostrils b.i.d. p.r.n. 11. Ibuprofen 600 mg 3 times a day p.r.n. 12. Zyrtec 10 mg daily. 13. Mucinex 600 mg b.i.d. 14. Dyazide 37.5/25 one capsule daily. 15. Protonix 20 mg daily. 16. Xanax 0.5 mg up to 4 times a day p.r.n. ALLERGIES: Include LEVAQUIN and EVERYTHING WITH SEAFOOD RELATED as well as IV CONTRAST DYE. She gets anaphylaxis with it. FAMILY HISTORY: Positive for father with diabetes, hypertension, stroke and mother with diabetes. SOCIAL HISTORY: The patient lives with her brother in [place], [place]. 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 Her hearing is in August. Her daughter, Ric from [place] is her healthcare proxy and Ric's phone number is [phone]. The patient has history of 10 cigarettes a day smoking ever since she turned 19. She continues to smoke. She denies any drugs or alcohol use. REVIEW OF SYSTEMS: Please see history of present illness. The patient has multiple complaints including bilateral shoulder pain, bilateral hand pain, bilateral knee pain. Leg swelling as mentioned above, which disappears within minutes with no precipitating or alleviating factors that the patient was aware of or I could distinguish. The patient denies chest pain, but she had chest pain on June 28 as mentioned above. When I asked about possibility of obstructive sleep apnea, the patient stated that she sleeps very well and is not aware of snoring. The patient has had no fevers. She denies any shortness of breath. There is no chest pain right now. All the remaining 12 systems were reviewed with the patient and were otherwise negative. PHYSICAL EXAMINATION GENERAL: The patient is a very pleasant 57-year-old female who is in no acute distress. Alert, awake, and oriented x3. VITAL SIGNS: Blood pressure 122/83, heart rate of 108 and regular, respiratory rate 26, oxygen saturation 95% on room air, temperature 98.5. HEENT: Head: Atraumatic, normocephalic. Eyes: Pupils are equal, reactive to light and accommodation. Oropharynx clear. Mucosa moist. NECK: Supple. No JVD. No bruits bilaterally. RESPIRATORY: Clear to auscultation bilaterally. CARDIOVASCULAR: Regular rate and rhythm, no murmur. ABDOMEN: Soft and nontender. Bowel sounds are present in all 4 quadrants. EXTREMITIES: There is trace right ankle edema. Pulses are +2 bilaterally. No clubbing or cyanosis. NEURO EVALUATION: Speech clear. Cranial nerves II through XII grossly intact. Motor strength is 5/5 bilaterally. PSYCHIATRIC EVALUATION: Oriented x3. Pleasant and cooperative with evaluation with no evidence of anxiety or depression. DIAGNOSTIC STUDIES/LAB DATA: Laboratory data and studies performed today include: EKG showed sinus tachycardia with a heart rate of 103 beats per minute with no significant ST changes. Sodium was 139, potassium 3.8, chloride 107, carbon dioxide 28, BUN 14, creatinine 0.78. Liver function tests were unremarkable. C-reactive protein of 13. Brain natriuretic peptide was 69. Troponin of 0. Cortisol was 1.7. TSH was 2.7. Folate of 10. Vitamin D was 20. Vitamin B12 was 365. Lipase of 14. White blood cell count of 7.3, hemoglobin of 13.8, hematocrit of 41, and platelets of 159. The patient's D-dimer was below 200. Urinalysis was unremarkable. Portable chest x-ray, impression: "No radiographic evidence of acute pulmonary abnormality on this portable chest x-ray." The patient's venous Doppler study showed normal examination, unchanged from July 08. No evidence of DVT. That was evaluation of the right lower extremity. ASSESSMENT AND PLAN: 1. Episodes of chest pain and leg edema. The patient is a poor historian. I am not sure if I should believe that that the patient had a very large edema of her right lower extremity today as she described "as a balloon" and all resolved. Nevertheless, the patient is to be continued on Dyazide, which apparently helped. In regards to her cardiac evaluation, the patient is going to be placed on overnight observation for a stress test in the morning, which is going to be pharmacologic due to the patient's joint pains. 2. In regards to the patient's tachycardia as per Dr. Jones's note, the patient had a Holter, which showed sinus rhythm with infrequent PVCs. So far from the investigations done outpatient, her TSH and cortisol level were unremarkable. She also had an ESR level, which was documented on 02/07/17 at 16. At this point, we will continue monitoring. The patient's echo was documented in Dr. Jones's note, normal EF of 50%. Due to the patient having negative Dopplers and D-dimer below 200, I do not suspect she has PE, although she has tachycardia and she did not have dyspnea and she is not hypoxemic. We will continue evaluating her on telemetry monitored bed. 3. In regards to the patient's chronic problems, the patient is going to be continued on her alprazolam and gabapentin as well as buspirone, nortriptyline for her chronic issues with anxiety and depression. 4. For history of chronic pain, oxycodone and cyclobenzaprine is going to be continued. 5. For DVT prophylaxis, the patient is going to be placed on heparin subcutaneously. 6. The patient's code status is full and her healthcare proxy is her daughter as mentioned above. 7. In regards to the patient's nicotine use, the patient was asked to stop smoking. Nicotine replacement is going to be provided to her during her hospital stay. TIME SPENT: Approximately 65 minutes were spent on admission of this patient, more than half of the time was spent [id number] with the patient during the interview and physical exam. [id number]/[facility] #: [id number] MTDD
[2017-07-16] MEDS ORDERED: Nortriptyline CAP* 10 MG PO SCH (21:00)
[2017-07-16] MEDS ORDERED: busPIRone TAB* 5 MG PO SCH (21:00)
[2017-07-16] MEDS: Gabapentin CAP(*) 300 MG PO SCH (21:10)
[2017-07-16] MEDS: guaiFENesin ER TAB 600 MG PO SCH (21:11)
[2017-07-16] MEDS: Heparin VIAL(*) 5000 UNITS/ML VIAL (FIVE THOUSAND) SUBCUT SCH (21:12)
[2017-07-17] MEDS: Heparin VIAL(*) 5000 UNITS/ML VIAL (FIVE THOUSAND) SUBCUT SCH ×2 (05:46→14:08)
[2017-07-17] MEDS: Cyclobenzaprine TAB* 10 MG PO PRN ×2 (05:56→14:06)
[2017-07-17] MEDS: oxyCODONE TAB* 5 MG TAB PO PRN ×2 (05:58→14:08)
[2017-07-17] MEDS: ALPRAZolam TAB* 0.5 MG PO PRN ×2 (05:58→14:08)
[2017-07-17] MEDS ORDERED: Omeprazole CAP* 20 MG PO SCH (06:00)
[2017-07-17] MEDS ORDERED: Triamterene/HCTZ 37.5-25 MG* CAP PO SCH (09:00)
[2017-07-17] MEDS: Gabapentin CAP(*) 300 MG PO SCH ×2 (09:58→14:08)
[2017-07-17] MEDS: guaiFENesin ER TAB 600 MG PO SCH (09:59)
--- NOTE | 2017-07-17 10:22 | RAD ---
HISTORY: Chest pain, obesity, history of heart disease COMPARISONS: None TECHNIQUE: A 1 day stress/rest myocardial perfusion study was performed, with pharmacologic stress. The stress portion was monitored by Dr. Mays. Gated SPECT imaging was performed, with CT-based attenuation correction DOSE: Stress: Technetium 99m tetrofosmin, 25.5 millicuries, injected at 8:50 AM on July 17, 2017 Rest: Technetium 99m tetrofosmin, 10.8 millicuries, injected at 7:00 AM on July 17, 2017 Pharmacologic agent: Lexiscan FINDINGS: CARDIAC MONITORING: No ischemic EKG changes with stress EF: 70% TID: 1.4 MOTION: Normal motion, with normal wall thickening. PERFUSION: There is a small reversible defect of the apex OTHER: None IMPRESSION: SMALL REVERSIBLE DEFECT OF THE APEX. ELEVATED TID RATIO WHICH CAN BE ASSOCIATED WITH THREE-VESSEL DISEASE. ASSESSMENT: HIGH RISK. Based on imaging criteria from ACC/AHA 2002. Guideline Update for the Management of Patient's with Chronic Stable Angina, table 23. Noninvasive Risk Stratification. CPT II Codes: 8591Y3I
[2017-07-17] MEDS ORDERED: Regadenoson* 0.4 MG/5 ML SYRINGE ONE (12:25)
[2017-07-17 13:19] LABS: HDL Cholesterol 32.1 mg/dL
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
--- NOTE | 2017-07-17 15:50 | CONSULT ---
Subjective Date of Service: 07/17/17 Interval History: Admission Date: 07/16/17 Date of consult: 07/17/2017 Service: Hospitalist PMD: Dr. Hyatt Document Reviewer: Dr. Jones CHIEF COMPLAINT: Chest pain Reason for consult: Chest pain HISTORY OF PRESENT ILLNESS: Ayanna Aleman is a 57-year-old woman who here with chest pain. She gave me the following account of her two separate chest pain symptom complexes. She has had chest pain related to panic attacks since 2000. This is described as throat and gum burning and is reliably relieved with xanax she takes sublingual. Starting about 4 or 5 months ago she has had a different form of chest pain. She woke up with substernal chest discomfort and an awful taste in her mouth. It would happen every day and last until she ate a cinnamon drop or something similar. She did not notice a relation to food but was always accompanied by a bad taste in her mouth. She was given a PPI by Dr. Hyatt but was only taking it PRN and not as a maintenance medication. She also has intermittent edema of the legs that is currently resolved on examination with a diuretic as below. Patient was scheduled for an outpatient stress test yesterday that was not able to be completed. She was told to go to the ER. She ruled out for ACS with an EKG and serial troponins. She has a vasodilator stress MPI which I reviewed. Given her obesity, large breasts and inability to lift arms, it was a difficult study. There was a very small area of mild intensity apical defect that mostly resolved on attenuation correction. The TID index was elevated but there were no ischemic ekg changes and the stress cine images did not appear to have dilation or dysfunction, the LVEF was calculated at 75%. It appeared to be a normal stress test. PAST MEDICAL HISTORY: Includes: 1. Tachycardia. 2. Gastroesophageal reflux disease. 3. History of lymphedema. 4. History of knee pain. 5. History of thoracic and lumbosacral neuritis. 6. History of ruptured tendons of the hands in the past. 7. Vitamin D deficiency. 8. Extensive carpi radialis tenosynovitis with torn ligament on the right. 9. History of "abnormal glucose levels." ALLERGIES: Include LEVAQUIN and EVERYTHING WITH SEAFOOD RELATED as well as IV CONTRAST DYE. She gets anaphylaxis with it. FAMILY HISTORY: Positive for father with diabetes, hypertension, stroke and mother with diabetes. SOCIAL HISTORY: lives with her brother Girish in [place]. [place]. Daughter, Ric from [place] is her healthcare proxy. 1/2 ppd cigarettes since age 19. She denies any drugs or alcohol use. Medications Active Medications: Acetaminophen (Tylenol Tab*) 650 mg PO Q4H PRN PRN Reason: FEVER/PAIN Al Hydrox/Mg Hydrox/Simethicone (Maalox Plus*) 30 ml PO Q6H PRN PRN Reason: INDIGESTION Alprazolam (Xanax Tab*) 0.5 mg PO QID PRN PRN Reason: ANXIETY Last Admin: 07/17/17 14:08 Dose: 0.5 mg Atorvastatin Calcium (Lipitor*) 20 mg PO 1700 [facility] Buspirone HCl (Buspar Tab*) 7.5 mg PO BEDTIME [facility] Last Admin: 07/16/17 21:10 Dose: 7.5 mg Cyclobenzaprine HCl (Flexeril Tab*) 10 mg PO TID PRN PRN Reason: SPASMS Last Admin: 07/17/17 14:06 Dose: 10 mg Diltiazem HCl (Cardizem Cd Cap*) 180 mg PO DAILY [facility] Gabapentin (Neurontin Cap(*)) 300 mg PO TID [facility] Last Admin: 07/17/17 14:08 Dose: 300 mg Guaifenesin (Mucinex*) 600 mg PO BID [facility] Last Admin: 07/17/17 09:59 Dose: 600 mg Heparin Sodium (Porcine) (Heparin Vial(*)) 5,000 units SUBCUT Q8HR [facility] Last Admin: 07/17/17 14:08 Dose: 5,000 units Ibuprofen (Motrin Tab*) 600 mg PO TID PRN PRN Reason: PAIN Nicotine (Nicotine Inhaler*) 10 mg INH Q2H PRN PRN Reason: CRAVING Nortriptyline HCl (Pamelor Cap*) 20 mg PO BEDTIME [facility] Last Admin: 07/16/17 21:11 Dose: 20 mg Omeprazole (Prilosec Cap*) 20 mg PO 0600 [facility] Last Admin: 07/17/17 05:46 Dose: Not Given Oxycodone HCl (Roxycodone Tab*) 10 mg PO Q8H PRN PRN Reason: PAIN Last Admin: 07/17/17 14:08 Dose: 10 mg Oxycodone/Acetaminophen (Percocet 5/325 Tab*) 1 tab PO Q4H PRN PRN Reason: Pain Triamterene/HCTZ (Dyazide Cap*) 1 cap PO QAM [facility] Last Admin: 07/17/17 09:59 Dose: 1 cap Home Medications: Oxycodone TAB(NF) [Oxycodone HCl 10 MG] 10 mg PO Q8HR PRN 10/23/16 [History Confirmed 07/16/17] Cetirizine* [ZyrTEC 10 MG TAB*] 10 mg PO QPM 06/05/17 [History Confirmed ] Ibuprofen TAB* [Motrin TAB* 600 MG] 600 mg PO TID PRN 06/05/17 [History Confirmed 07/16/17] ALPRAZolam TAB* [Xanax TAB*] 0.5 mg PO QID PRN 07/16/17 [History Confirmed 07/16] Cyclobenzaprine (NF) [Cyclobenzaprine 5 MG (NF)] 10 mg PO TID PRN 07/16/17 [ History Confirmed 07/16/17] Dextromethorphan-Guaifenesin [Robitussin Cough & Chest 5-100 mg/5Ml] 1 teasp PO .Q4-6H PRN 07/16/17 [History Confirmed 07/16/17] Diclofenac 1% GEL (NF) [Voltaren 1% GEL (NF)] 1 applic TOPICAL BID 07/16/17 [ History Confirmed 07/16/17] Ergocalciferol CAP* [Drisdol CAP*] 50,000 unit PO WEEKLY 07/16/17 [History Confirmed 07/16/17] Gabapentin CAP(*) [Neurontin 300 CAP(*)] 300 mg PO TID 07/16/17 [History Confirmed 07/16/17] Mometasone NASAL (NF) [Nasonex (NF)] 2 spray BOTH NARES BID PRN 07/16/17 [ History Confirmed 07/16/17] Nortriptyline CAP* [Pamelor CAP*] 10 - 20 mg PO BEDTIME 07/16/17 [History Confirmed 07/16/17] Pantoprazole TAB (NF) [Protonix TAB (NF)] 20 mg PO QAM 07/16/17 [History Confirmed 07/16/17] Triamterene/HCTZ 37.5-25 MG* [Dyazide CAP*] 1 cap PO QAM 07/16/17 [History Confirmed 07/16/17] busPIRone TAB* [Buspar TAB*] 7.5 mg PO BEDTIME 07/16/17 [History Confirmed 07/16] guaiFENesin ER TAB [Mucinex*] 600 mg PO BID 07/16/17 [History Confirmed 07/16/17 ] Review of Systems - Measurements Intake and Output: Intake and Output Last 24 Hours 07/15/17 07/16/17 07/17/17 07/18/17 06:59 06:59 06:59 06:59 Intake Total 0 0 Output Total 0 Balance 0 0 Weight 189 lb Intake: Oral 0 0 Output: Urine 0 Other: # Bowel Movements 0 # Voids 0 - Review of Systems Constitutional Symptoms: Negative: Weight Gain, Weight Loss Dermatology: Negative: Skin Lesions, Cancer Eyes: Negative: Change in Vision, Double Vision Thyroid: Negative: Thyroid Nodule, Cold Intolerance, Heat Intolerance, Sweatiness, Tremor, Frequent Defecation, Constipation, Weight Loss, Weight Gain Pulmonary: Negative: Cough, Sputum, Hemoptysis, Respiratory Distress, Shortness of Breath, COPD Cardiology: Positive: Chest Pain, Edema Negative: Shortness of Breath, Palpitations, Swelling of Ankles, Peripheral Vascular Dis, Faintness, Syncope, Claudication, Paroxysmal Nocturnal Dyspnea, Orthopnea Gastroenterology: Positive: Nausea, Indigestion, Heartburn Negative: Abdominal Pain, Vomiting, Anorexia, Difficulty Swallowing, Constipation, Diarrhea, Blood in Stools, Change in Bowel Habits, Haematemesis, Melena Genital - Urinary: Negative: Dysuria, Hematuria Musculoskeletal: Negative: Joint Pain, Joint Stiffness, Arthritis Endocrinology: Positive: Obesity Negative: Thyroid Problems, Adrenal Problems, Gonadal Problems, Family Hx Endocrine Disorders, Diabetes, Hyperglycemia, Hypoglycemia, Calluses, Hirsutism , Polydipsia, Polyuria, Gynecomastia, Pituitary Disease Hematologic/Lymphatic: Negative: Easy Brusing, Hx Leukemia, Hx Lymphoma, Use of Anticoagulant, Use of Antiplatelet Drugs Neurology: Negative: Diplopia, Dizziness, Change in Coordination, Change in Memory, Change in Speech, Hx of Stroke\\TIA, Hx Seizures Psychiatry: Negative: Tearfulness, Unusual Fatigue Allergic/Immunologic: Negative: Hx HIV, Immunocompromise Review of Systems Statement: All other review of systems negative, unless stated above. Objective Vital Signs: Temp Pulse Resp BP Pulse Ox 98.5 F 87 18 124/86 97 07/17/17 11:21 07/17/17 11:21 07/17/17 14:08 07/17/17 11:21 07/17/17 11:21 Oxygen Devices in Use Now: None Appearance: nad Ears/Nose/Mouth/Throat: Clear Oropharnyx Neck: NL Appearance and Movements; NL JVP Respiratory: Symmetrical Chest Expansion and Respiratory Effort, Clear to Auscultation Cardiovascular: NL Sounds; No Murmurs; No JVD, RRR, No Edema Abdominal: NL Sounds; No Tenderness; No Distention Lymphatic: No Cervical Adenopathy Extremities: No Edema, No Clubbing, Cyanosis Skin: No Rash or Ulcers Neurological: Alert and Oriented x 3 Laboratory Results: 07/16/17 10:43 07/16/17 10:43 INR (Anticoag Therapy) 0.89 (0.77-1.02) 07/16/17 10:43 APTT 35.0 seconds (26.0-36.3) 07/16/17 10:43 Total Bilirubin 0.30 mg/dL (0.2-1.0) 07/16/17 10:43 AST 13 U/L (13-39) 07/16/17 10:43 ALT 15 U/L (7-52) 07/16/17 10:43 Alkaline Phosphatase 55 U/L (34-104) 07/16/17 10:43 CK-MB (CK-2) 3.2 ng/mL (0.6-6.3) 07/16/17 10:43 B-Natriuretic Peptide 69 pg/mL (-100) 07/16/17 10:43 Total Protein 6.6 g/dL (6.4-8.9) 07/16/17 10:43 Albumin 3.7 g/dL (3.2-5.2) 07/16/17 10:43 Globulin 2.9 g/dL (2-4) 07/16/17 10:43 Albumin/Globulin Ratio 1.3 (1-3) 07/16/17 10:43 Triglycerides 253 mg/dL 07/17/17 12:38 Cholesterol 196 mg/dL 07/17/17 12:38 LDL Cholesterol 113 mg/dL 07/17/17 12:38 HDL Cholesterol 32.1 mg/dL 07/17/17 12:38 TSH 2.74 mcIU/mL (0.34-5.60) 07/16/17 10:43 07/16/17 07/16/17 10:43 14:29 Troponin I 0.01 0.00 Diagnostic Imagin07/16/2017: Sinus tachycardia 103 bpm, otherwise unremarkable EKG US lower extremities: No dvt echo 06/27/2017: Decreased LV cavity size, mild LVH, LVEF low normal 50%, normal LA size, normal RV size and function, no significant valvular abnormalities noted. 06/25/2017 holter monitor: Chest pain associated with sinus rhythm Assessment/Plan Ayanna's symptoms and edema appear to be non-cardiac as outlined above. Suspect current episodes of chest discomfort associated with bad taster in mouth may be related to esophageal spasm from GERD. I advised her to take PPI daily, not just as needed. I also added diltiazem 180 mg PO daily for this indication. We discussed that she is at elevated risk, even in the short term of things including but not limited to heart attack, stroke and if she does not quit smoking immediately. She expressed understanding of this. She requests nicotine inhalers as cessation aide. 10 year risk for CV events based on ACC/AHA risk calculator is 6.8%, I added moderate intensity atorvastatin 20 mg PO daily for primary prevention Edema (which is not evident today) management as per PMD. I counseled her on a heart healthy diet including low sodium which should help improve her overall health and reduce edema. Thank you for allowing me to participate in the cardiovascular care of this patient. Please do not hesitate to contact me with questions or concerns.
[2017-07-17] MEDS ORDERED: Diltiazem CD CAP* 180 MG PO SCH (16:00)
[2017-07-17 16:13] VITALS: BP 139/83
[2017-07-17] MEDS ORDERED: Atorvastatin* 20 MG TAB PO SCH (17:00)
--- NOTE | 2017-07-18 04:50 | DS ---
CC: Dr. Jones; Dr. Smith; Dr. Hyatt DISCHARGE SUMMARY: DATE OF ADMISSION: 07/16/17 DATE OF DISCHARGE: 07/17/17 PRIMARY CARE PROVIDER: Dr. Hyatt. DISCHARGE DIAGNOSES: History of chest pain approximately a month prior to the patient's presentation. The patient had high probability cardiac stress test and TID index was elevated. There were no ischemic changes on her EKG and her troponins were negative. The patient was cleared to be discharged by Dr. Smith from Cardiology. SECONDARY DIAGNOSES: 1. History of tachycardia. 2. Gastroesophageal reflux disease. 3. History of lymphedema. 4. History of multiple areas of joint pain. 5. History of thoracic and lumbosacral neuritis. 6. History of vitamin D deficiency. MEDICATIONS AT DISCHARGE: Includes, the patient's medications at admission in addition to Cardizem and Lipitor and does include: 1. Xanax 0.5 mg up to 4 times a day p.r.n. 2. Lipitor 20 mg daily. 3. BuSpar 7.5 mg at bedtime. 4. Zyrtec 10 mg daily. 5. Flexeril 10 mg 3 times a day p.r.n. 6. Cough syrup which is dextromethorphan with guaifenesin on a p.r.n. basis. 7. Voltaren gel 1% one application topical on a p.r.n. basis. 8. Cardizem CD 180 mg daily. 9. Vitamin D3 50,000 units p.o. weekly. 10. Neurontin 300 mg 3 times a day. 11. Mucinex 600 mg b.i.d. p.r.n. 12. Morphine 600 mg 3 times a day p.r.n. 13. Nasonex nasal spray 2 sprays both nostrils daily. 14. Nortriptyline 10 to 20 mg at night. 15. Oxycodone 10 mg every 8 hours p.r.n. 16. Protonix 20 mg daily. 17. Dyazide 1 capsule daily. LABORATORY DATA AND STUDIES PERFORMED DURING THE HOSPITAL STAY: Included: Troponins throughout her hospital stay was 0.01 to 0.00. The patient's lipid profile showed triglycerides of 253, cholesterol total of 196, LDL of 113, and HDL of 32. Nuclear medicine cardiac stress test was read by Dr. Preston from Radiology as "high risk." There was small reversible defect at the apex. There was also elevated t.i.d. ratio, which can be associated with 3-vessel disease. HOSPITALIZATION COURSE: Ayanna Aleman is a 57-year-old female with history of multiple risk factors of heart disease including smoking, hyperlipidemia, obesity, who presented to the hospital after she was scheduled for an outpatient stress test and somehow she failed to have it done due to scheduling issues. At that point per Dr. Jones, the patient's fiber optic central office installer recommended for the patient to come into the ED for evaluation. The patient had a chest pain that occurred on 06/28/17. For further details of the patient' s chest pain and other complaints, please see history of present illness dictated in my history and physical at admission. Shortly, the patient was placed on overnight observation with no recurrence of her symptoms. Her troponins continued to be negative, but her stress test showed at high risk. Dr. Smith saw patient from Cardiology in regards to that positive finding. Dr. Smith noted that the patient had a very small area of mild intensity at the apex that mostly resolved on the attenuation correction. The TID index was also elevated, but there were no ischemic EKG changes. He also thought that appeared to be a normal stress test. Recommendation from fiber optic central office installer was to place the patient on Cardizem CD at 180 mg daily and continue the patient's PPI. The patient also was started on Lipitor due to her dyslipidemia. Pt was OK 'ed for discharge by cardiology. PHYSICAL EXAMINATION AT THE TIME OF DISCHARGE: Unchanged from admission. DISCHARGE INSTRUCTIONS: The patient was recommended to follow up with her primary care provider in approximately 4 to 7 days. The patient also has already been scheduled with Dr. Jones for followup in approximately 1 to 2 weeks. Please note that this is a short summary of the patient's hospitalization. Please refer to further medical records for details. TIME SPENT: Approximately 40 minutes was spent on the patient's discharge. [id number]/[facility] #: [id number] MTDD
== END 2017-07-17 17:51 | disposition home or self-care (01) ==
LOC: ED 09:38 → MEDTELE 14:11
PROVIDERS: ADMIT Internal Medicine; ATTEND Internal Medicine
DX: R07.9 Chest pain, unspecified (principal); Z86.79 Personal history of other diseases of the circulatory system; K21.9 Gastro-esophageal reflux disease without esophagitis; I89.0 Lymphedema, not elsewhere classified; M54.14 Radiculopathy, thoracic region; R06.02 Shortness of breath; R00.2 Palpitations; F17.210 Nicotine dependence, cigarettes, uncomplicated
CPT/HCPCS: 36415; 71010; 78452; 80053; 80061; 81003; 82140; 82306; 82533; 82550; 82553; 82607; 82652; 82746; 83605; 83690; 83735; 83880; 84443; 84484; 85025; 85379; 85610; 85730; 86140; 93005; 93017; 96365; 99283; A9270-GY; A9502; G0378; J1644; J2785

== ENCOUNTER → 2019-08-29 19:26 | Emergency (ER) | payer OTHER ==
[~2019-08-29 19:26] MED LIST: Diazepam TAB(*) 5 MG PO ONE; Ketorolac INJ* 30 MG/ML 1 ML VIAL IM ONE
[2019-08-29 19:42] VITALS: BP 116/94
--- OUTSIDE RECORDS SUMMARY | 2019-08-29 19:51 | XMS REPORT | Continuity of Care Document ---
:1960 External Reference #:[id number] Author Name Tiesha Jones M.D. (transmitted by agent of provider Chel Rubin) Address [address] [place] [id number] Care Team Providers Name Role Phone [facility] - Mental Care Team Information Lay Out Helper [facility] - Sleep Disorder Care Team Information Lay Out Helper Diagnostic Florentino Monsivais MD - Interventional Care Team Information Lay Out Helper [phone] Pain Medicine Luis Antonio Flores MD - Hematology Care Team Information Lay Out Helper Edda Condon MD - Obstetrics & Care Team Information Lay Out Helper [phone] Gynecology [facility] - Gynecology Care Team Information Lay Out Helper Mahnaz Quiñones M.D. 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 Onset: 03/22/2016 Extensor carpi radialis tenosynovitis Murphy Molina M.D.,FACP Onset: Note: with torn ligament right Vitamin D deficiency Murphy Molina M.D.,FACP Onset: 05/22/2016 Rupture of extensor tendons of hand Esdras Hyatt M.D. Onset: 06/10/2016 AND/OR wrist Thoracic and lumbosacral neuritis Esdras Hyatt M.D. Onset: 08/14/2016 Knee pain Esdras Hyatt M.D. Onset: 04/18/2017 Lymphedema Esdras Hyatt M.D. Onset: 06/11/2017 Gastroesophageal reflux disease Esdras Hyatt M.D. Onset: 06/11/2017 Tachycardia Esdras Hyatt M.D. Onset: 06/17/2017 Localized, primary osteoarthritis Lety Trent M.D. Onset: 08/11/2017 Localized, primary osteoarthritis of Kj Crawley MD Onset: 07/10/2018 the hand Lateral epicondylitis jK Crawley MD Onset: 08/21/2018 Social History Type Date Description Comments Sex Unknown ETOH Use Denies alcohol use Recreational Drug Use Denies Drug Use Tobacco Use Start: Unknown Light tobacco smoker (10 or fewer cigarettes/day) Smoking Status Reviewed: 08/27/19 Light tobacco smoker (10 or fewer cigarettes/day) Exercise Type/Frequency Does not exercise Allergies, Adverse Reactions, Alerts Active Allergies Reaction Severity Comments Date Levaquin 03/22/2016 Fish-derived Products 03/22/2016 Seafood 12/25/2016 Iodine Severe 07/11/2017 Iothalamic Acid Severe 07/11/2017 Novocaine severe 08/03/2018 Medications Active Medications SIG Qnty Indications Ordering Date Provider Digox one po qd 30tabs Qutaybeh S. 08/27/2019 125mcg Tablets Patricia Jones Spironolactone 1/2 tablet by mouth 30tabs Norma Moreland, 08/05/2019 25mg every day N.P. Tablets Turmeric take one 60caps M77.11 Kishor Moseley, 05/27/2019 400mg Capsules capsule/tablet M.D. daily by mouth(avoid seafood or shellfish and avoid iodine in the preparation) 9 Reported has not started yet Cardizem CD 1 by mouth every 90caps R00.0 Norma Moreland, 08/28/2018 240mg Caps ER day N.P. 24HR Furosemide Take 1 Tablet By 90tabs Norma Moreland, 04/06/2018 20mg Tablets Mouth Once Daily N.P. Compression Stockings wear on both legs 2units Norma SBranden Aniceto, 10/06/2017 daily and remove at N.P. [facility] night Compression Stockings Wear on both legs 2units R60.0 Norma SBranden Aniceto, 09/09 daily and remove at [facility] night Miralax Take one dose 17g 476gm R60.0 Norma Moreland, 09/09/2017 3350NF Powder as needed for N.P. constipation Cane- 4 Pronged use for ambulation 1units M17.0 Lety Twan, 08/11/2017 at all times tha Cote M.D. b knee pain/oa Elbow Support/Neoprene left and right 2units Kj Crawley, 08/06/2017 Medium elbow support [facility] Triamterene/Hydrochlor take one capsule by 30caps I89.0 Murphy Glynn 07/03 othiazide mouth once daily in Patricia Molina,FACP 37.5-25mg the morning prn Capsules Pantoprazole Sodium once daily in the 30tabs K21.9 [place] 06/11/2017 20mg morning 1 before Patricia Hyatt Tablets [address] breakfast Oxycodone HCL 1 tab 8h as needed 90tabs M66.231 [place] 06/10/2016 10mg Patricia Hyatt Tablets Vitamin D 1 capsule by mouth 4caps E55.9 Murphy Glynn 06/10/2016 (Ergocalciferol) once weekly Patricia Molina,FACP [id number] Capsules Alprazolam 1 tab 3 times a day 90tabs Murphy Glynn 0.5mg Tablets as needed for Patricia Molina,FACP anxiety. Buspirone HCL 1 by mouth daily at 30tabs Murphy Glynn 7.5mg bedtime Patricia Molina,FACRadha Tablets Nortriptyline HCL 2 caps by mouth Unknown 10mg every night as Capsules directed Cyclobenzaprine HCL one by mouth three Unknown 10mg times a day as Tablets needed spasm Diclofenac Sodium apply 1 grams on Unknown 1% Gel arm or knee twice daily as needed Atorvastatin Calcium take 1 tablet daily 30tabs Tiesha S. 20mg Patricia Jones Tablets Metformin HCL ER (Mod) 1 tablet by mouth Unknown twice a day 1000mg Tablets ER 24HR Gabapentin take one capsule by Unknown 400mg Capsules mouth 4 times a day Guaifenesin 1 tablet twice a Unknown 400mg Tablets day as need for a cough Proctozone-HC use after bowel Unknown 2.5% Cream movement and every night at bedtime Xnodxctn-Skddtztoi-GF 4 drops to right Unknown ear four times a [id number] Suspension day History Medications Cardizem CD 1 by mouth every 30caps R00.0 Norma Moreland, 06/04/2019 - 300mg day N.P. 06/10/2019 Caps ER 24HR Medications Administered in Office Medication SIG Qnty Indications Ordering Provider Date Records Fee Esdras Hyatt M.D. 04/27/2018 Injection Immunizations Description No Information Available Vital Signs Date Vital Result Comment 08/27/2019 3:19pm Height 62.25 inches 5'2.25" Weight 190.00 lb with shoes Heart Rate 116 /min left radial BP Systolic Sitting 122 mmHg Lue, reg cuff BP Diastolic Sitting 84 mmHg Lue, reg cuff O2 % BldC Oximetry 94 % BMI (Body Mass Index) 34.5 kg/m2 Ejection Fraction 55%-60% echocardiogram 08/17/1910 06/04/2019 3:00pm Height 62.25 inches 5'2.25" Weight 196.00 lb Heart Rate 80 /min BP Systolic Sitting 138 mmHg LA, reg BP Diastolic Sitting 84 mmHg LA, reg O2 % BldC Oximetry 96 % room air BMI (Body Mass Index) 35.6 kg/m2 Ejection Fraction 55%-60% 08/17/2018 echo Results Test Acquired Date Facility Test Result H/L Range Note Basic Metabolic 08/13/2019 [facility] Sodium 140 mmol/L Normal 135-[address] [place] [address] [phone] Potassium 4.3 mmol/L Normal 3.5-5.0 Chloride 104 mmol/L Normal 101-111 Co2 Carbon Dioxide 25 mmol/L Normal 22-32 Anion Gap 11 mmol/L Normal 2-11 Glucose 127 mg/dL High 70-100 Blood Urea Nitrogen 15 mg/dL Normal 6-24 Creatinine 0.84 mg/dL Normal 0.51-0.95 BUN/Creatinine Ratio 17.9 Normal 8-20 Calcium 9.6 mg/dL Normal 8.6-10.3 Egfr Non- 69.9 >60 Egfr 84.6 >60 1 1 Because ethnic data is not always readily [...] 15-29 5 Kidney failure <15 (or dialysis) Procedures Date Code Description Status 08/27/2019 15677 EKG Tracing & Interpretation Completed 08/13/2019 24294 Holter Monitor Review (24 hr)dr ash & interp only Completed 08/11/2019 05077 ECG Monitor/Recording W/Visual Superimposition Scanning Completed 08/11/2019 94318 ECG Monitor/Recording W/Visual Superimposition Scanning Completed 04/29/2019 30562 Holter Monitor Review (24 hr)dr nilsa & interp only Completed 04/28/2019 76497 ECG Monitor/Recording W/Visual Superimposition Scanning Completed 07/28/2014 16175468 Mammogram Completed 02/06/2012 [id number] Colonoscopy Completed Medical Devices Description No Information Available Encounters Type Date Location Provider Dx Diagnosis Office Visit 06/04/2019 [facility] Norma Moreland, R00.0 Tachycardia, 3:30p N.P. unspecified R00.2 Palpitations R60.0 Localized edema I49.3 Ventricular premature depolarization F17.210 Nicotine dependence, cigarettes, uncomplicated Office Visit 05/27/2019 1:20p Rheumatology Kishor Moseley, M25.551 [facility] right hip M18.12 Unil primary osteoarth of first carpometacarp joint, l hand G89.4 Chronic pain syndrome M77.11 Lateral epicondylitis, right elbow Office Visit 04/13/2019 Shayla Pradhan. R00.0 Tachycardia, 4:20p Cardiology Patricia Jones unspecified R60.0 Localized edema R00.2 Palpitations E66.9 Obesity, unspecified G89.4 Chronic pain syndrome Office Visit 03/25/2019 10:20a Rheumatology Kishor Moseley, M25.551 [facility] M.DBranden right hip M18.12 Unil primary osteoarth of first carpometacarp joint, l hand R60.0 Localized edema F17.210 Nicotine dependence, cigarettes, uncomplicated Assessments Date Code Description Provider 08/27/2019 I49.3 Ventricular premature depolarization Tiesha Jones M.D. 08/27/2019 R00.0 Tachycardia, unspecified Tiesha Jones M.D. 08/27/2019 R00.2 Palpitations Tiesha Jones M.D. 08/27/2019 R60.0 Localized edema Tiesha Jones M.D. 08/13/2019 I49.3 Ventricular premature depolarization Tiesha Jones M.D. 08/11/2019 I49.3 Ventricular premature depolarization Tiesha Jones M.D. 08/11/2019 I49.3 Ventricular premature depolarization Nurse Visit cc 06/04/2019 R00.0 Tachycardia, unspecified Norma Moreland, N.P. 06/04/2019 R00.2 Palpitations Norma Moreland, N.P. 06/04/2019 R60.0 Localized edema Norma Moreland, N.P. 06/04/2019 I49.3 Ventricular premature depolarization Norma Moreland, N.P. 06/04/2019 F17.210 Nicotine dependence, cigarettes, Norma Moreland, N.P. uncomplicated 05/27/2019 M25.551 Pain in right hip Kishor Moseley M.D. 05/27/2019 M18.12 Unilateral primary osteoarthritis of Kishor Moseley M.D. first carpometacarpal j 05/27/2019 G89.4 Chronic pain syndrome Kishor Moseley M.D. 05/27/2019 M77.11 Lateral epicondylitis, right elbow Kishor Moseley M.D. 04/29/2019 R00.0 Tachycardia, unspecified Tiesha Jones M.D. 04/28/2019 R00.0 Tachycardia, unspecified Nurse Visit IC 04/28/2019 R00.2 Palpitations Nurse Visit IC 04/13/2019 R00.0 Tachycardia, unspecified Tiesha Jones M.D. 04/13/2019 R60.0 Localized edema Tiesha Jones M.D. 04/13/2019 R00.2 Palpitations Tiesha Jones M.D. 04/13/2019 E66.9 Obesity, unspecified Tiesha Jones M.D. 04/13/2019 G89.4 Chronic pain syndrome Tiesha Jones M.D. 03/25/2019 M25.551 Pain in right hip Kishor Moseley M.D. 03/25/2019 M18.12 Unilateral primary osteoarthritis of Kishor Moseley M.D. first carpometacarpal j 03/25/2019 R60.0 Localized edema Kishor Moseley M.D. 03/25/2019 F17.210 Nicotine dependence, cigarettes, Kishor Moseley M.D. uncomplicated Plan of Treatment Future Appointment(s):09/17/2019 3:00 pm - Norma Moreland [facility] at [facility]09/13/2019 9:00 am - Nurse Visit IC at [facility]2019 11:30 am - Nurse Visit IC at [facility]12/07/2019 3:20 pm - Tiesha Jones M.D. at [facility]11/25/2019 3:20 pm - Kishor Moseley M.D. 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
--- OUTSIDE RECORDS SUMMARY | 2019-08-29 19:51 | XMS REPORT | Continuity of Care Document ---
:1960 External Reference #:[id number] Author Name Kathi Valadez Care Team Providers Name Role Phone HCP/LW on file Care Team Information Artificial Stone Applicator Unavailable Lety Trent MD - Orthopaedic Care Team Information Artificial Stone Applicator Surgery Latisha Jones MD - Care Team Information Artificial Stone Applicator [phone] Cardiovascular Disease Problems Active Problems Provider Date Chronic pain syndrome Silvia Colunga PA Onset: 08/26/2017 Anxiety state Silvia Colunga PA Onset: 08/26/2017 Edema Silvia Colunga PA Onset: 08/26/2017 Tobacco user Silvia Colunga PA Onset: 08/26/2017 Gastroesophageal reflux disease Silvia Colunga PA Onset: 08/26/2017 Vitamin D deficiency Silvia Colunga PA Onset: 08/26/2017 Rupture of extensor tendons of hand AND/OR wrist Silvia Colunga PA Onset: Lymphedema Silvia Colunga PA Onset: 01/20/2018 Localized, primary osteoarthritis Silvia Colunga PA Onset: 03/26/2018 Type 2 diabetes mellitus Silvia Colunga PA Onset: 08/27/2018 Adjustment disorder with mixed emotional features Silvia Colunga PA Onset: Localized, primary osteoarthritis of the hand Silvia Colunga PA Onset: 2018 Fibromyalgia Silvia Colunga PA Onset: 12/15/2018 Inflammatory polyarthropathy Silvia Colunga PA Onset: 12/15/2018 Degeneration of intervertebral disc Silvia Colunga PA Onset: 12/15/2018 Microscopic hematuria Silvia Colunga PA Onset: 12/15/2018 Obesity Silvia Colunga PA Onset: 12/15/2018 Tachycardia Silvia Colunga PA Onset: 06/01/2019 Social History Type Date Description Comments Sex Unknown Tobacco Use Reviewed: 12/15/18 Light tobacco smoker (10 or <1/2 ppd fewer cigarettes/day) Smoking Status Reviewed: 06/01/19 Light tobacco smoker (10 or <1/2 ppd fewer cigarettes/day) ETOH Use Denies alcohol use Recreational Drug Use Denies Drug Use Tobacco Use Start: Unknown Light tobacco smoker (10 or fewer cigarettes/day) Exercise Type/Frequency Exercises rarely Sun Exposure Does not use sunscreen Seat Belt/Car Seat Seat Belt Use - Yes Guns in Home No Smoke Alarms Yes smoke alarm Allergies, Adverse Reactions, Alerts Active Allergies Reaction Severity Comments Date Levaquin bruising on legs Mild 08/26/2017 Fish-Derived Products Urticaria, swelling Severe 08/26/2017 Seafood Urticaria Moderate 08/26/2017 Contrast Dye Urticaria Moderate 08/26/2017 Novocaine seizures 12/15/2018 Medications Active Medications SIG Qnty Indications Ordering Date Provider Proctosol HC apply to 85.05gm K64.9 Silcoff, 07/14/2019 2.5% Cream hemorrhoids twice Patricia Moses a day as needed Neomycin/Polymyxin/Hyd 5 drops left ear 10ml H60.92 Silcoff, 07/14/2019 rocortisone (Otic) 3x/day for 7 days Patricia Moses 3.5-78790-7 Suspension Ventolin HFA 2 puffs q4-6 hours 18gm J20.9 Silcoff, 05/13/2019 108(90Base) as needed Patricia Moses mcg/Act Aerosol Buspirone HCL 1/2 tab (7.5mg) by 15tabs Boris, 04/21/2019 15mg mouth daily at Daquan, D.O. Tablets bedtime Gabapentin take one capsule Unknown 02/12/2019 400mg Capsules by mouth four times a day as needed for pain Guaifenesin ER 1400MG every 4 hours J20.9 Unknown 01/06/2019 Cardizem CD 1 cap by mouth Unknown 01/06/2019 240mg Caps ER every day for 24HR rapid heart rate/palpitations Eucalyptus Oil, Spa Unknown 01/06/2019 Difuser Metformin HCL take 1 tablet by 60tabs E11.9 Silcoff, 12/15/2018 1000mg mouth twice a day Patricia Moses Tablets True Metrix Meter test twice a day 1units E11.9 Sopchak, 10/28/2018 Levy Butt w/Device Kit True Metrix Blood test 4 times a day 200units Lavonnejuan josé, 10/28/2018 Glucosetest Strips Patricia Moses Strips Lancet Device use as directed 100units Krystal, 10/28/2018 Misc Patricia Moses Alprazolam 1 tab by mouth up 120tabs F41.9 Lavonneco, 09/11/2018 0.5mg Tablets to 4 times a day Patricia Moses as needed for anxiety *fill when due* Nicotrol inhale every 2 168units F17.210 Krystal, 06/16/2018 10mg Inhaler hours as needed Patricia Moses for cravings Potassium Chloride ER Take One Tablet By 30tabs E87.6 Krystal, 12/23/2017 Mouth Every Day Patricia Moses 10Meq Tablets ER For Potassium Replacement Vitamin D Take One Capsule 12caps Krystal, 09/11/2017 (Ergocalciferol) By Mouth Once Patricia Moses Weekly 77645Dlyq Capsules Eq Clearlax as directed as Unknown 09/09/2017 Powder needed Atorvastatin Calcium Take One Tablet By 30tabs Krystal, 08/25/2017 20mg Mouth Every Patricia Moses Tablets Evening Oxycodone HCL 1 tablets by mouth Unknown 08/25/2017 10mg q8h prn Tablets Ibuprofen 1 by mouth daily Unknown 08/25/2017 600mg Tablets or twice daily as needed Cyclobenzaprine HCL 1 tab by mouth Unknown 08/25/2017 10mg three times a day Tablets as needed for spasms Nortriptyline HCL 2 po QHS Unknown 08/25/2017 10mg Capsules Triamterene/Hydrochlor 1 capsule by mouth 30caps Boris, 08/25/2017 othiazide every morning Levy Butt 37.5-25mg Capsules Pantoprazole Sodium Take One Tablet By 30tabs Krystal, 08/25/2017 20mg Mouth Every Patricia oMses Tablets DR Morning Diclofenac Sodium apply topically Unknown 08/25/2017 1% Gel bid Furosemide Take One Tablet By 30tabs Krystal, 08/25/2017 20mg Tablets Mouth Every Day Patricia Moses History Medications Amoxicillin/Clavulanate 1 tab by 20keven K04Branden7 Krystal, 05/13/2019 - Potassium mouth twice a Patricia Moses 05/31/2019 875-125mg Tablets day x10 days Alprazolam 1 tablet by 21keven Rice, 03/20/2019 - 0.5mg Tablets mouth three Patricia Moses 04/13/2019 times a day as needed for anxiety Immunizations Description No Information Available Vital Signs Date Vital Result Comment 07/14/2019 2:34pm BP Systolic 130 mmHg BP Diastolic 90 mmHg Heart Rate 124 /min Weight 189.00 lb 06/01/2019 2:22pm BP Systolic 118 mmHg BP Diastolic 60 mmHg Weight 193.00 lb Results Test Acquired Date Facility Test Result H/L Range Note Laboratory test finding 06/01/2019 In House Hemoglobin A1c 6.2 Laboratory test finding 03/02/2019 In House Hemoglobin A1c 6.4 Procedures Date Code Description Status 07/14/2019 40845 Electrocardiogram Complete Completed 01/14/2019 [id number] Diabetic Retinal Eye Exam Completed 06/30/2018 86640142 Mammogram Completed 02/06/2012 64762271 Colonoscopy Completed Medical Devices Description No Information Available Encounters Type Date Location Provider Dx Diagnosis Office Visit 07/14/2019 Main Office Silvia Colunga PA R00.0 Tachycardia, 3:00p unspecified G89.4 Chronic pain syndrome K01.1 Impacted teeth F17.210 Nicotine dependence, cigarettes, uncomplicated F43.23 Adjustment disorder with mixed anxiety and depressed mood K64.9 Unspecified hemorrhoids H60.92 Unspecified otitis externa, left ear Office Visit 06/01/2019 2:30p Main Office Silvia Colunga, E11.9 Type 2 diabetes PA mellitus without complications G89.4 Chronic pain syndrome R00.0 Tachycardia, unspecified K01.1 Impacted teeth F17.210 Nicotine dependence, cigarettes, uncomplicated Office Visit 05/13/2019 2:55p Main Office Silvia Colunga, J20.9 Acute bronchitis, PA unspecified K04.7 Periapical abscess without sinus G89.4 Chronic pain syndrome F17.210 Nicotine dependence, cigarettes, uncomplicated Office Visit 03/02/2019 2:30p Main Office Hektor, Silvia, E11.9 Type 2 diabetes PA mellitus without complications G89.4 Chronic pain syndrome R00.2 Palpitations I89.0 Lymphedema, not elsewhere classified K59.00 Constipation, unspecified F17.210 Nicotine dependence, cigarettes, uncomplicated F43.23 Adjustment disorder with mixed anxiety and depressed mood Assessments Date Code Description Provider 07/14/2019 R00.0 Tachycardia, unspecified HekSilvia prieto, PA 07/14/2019 G89.4 Chronic pain syndrome ChristietorHernandoli, PA 07/14/2019 K01.1 Impacted teeth ChristietorHernandoli, PA 07/14/2019 F17.210 Nicotine dependence, cigarettes, uncomplicated HektorHernandoli, PA 07/14/2019 F43.23 Adjustment disorder with mixed anxiety and HekSilvia prieto, PA depressed mood 07/14/2019 K64.9 Unspecified hemorrhoids Silvia Colunga, PA 07/14/2019 H60.92 Unspecified otitis externa, left ear Silvia Colunga, PA 06/01/2019 E11.9 Type 2 diabetes mellitus without complications Silvia Colunga, PA 06/01/2019 G89.4 Chronic pain syndrome ChristietorHernandoli, PA 06/01/2019 R00.0 Tachycardia, unspecified HektorHernandoli, PA 06/01/2019 K01.1 Impacted teeth Silvia Colunga, PA 06/01/2019 F17.210 Nicotine dependence, cigarettes, uncomplicated HektorSilvia, PA 05/13/2019 J20.9 Acute bronchitis, unspecified Silvia Colunga, PA 05/13/2019 K04.7 Periapical abscess without sinus Silvia Colunga, PA 05/13/2019 G89.4 Chronic pain syndrome Hektor Silvia, PA 05/13/2019 F17.210 Nicotine dependence, cigarettes, uncomplicated HektorSilvia, PA 03/02/2019 E11.9 Type 2 diabetes mellitus without complications Silvia Colunga, PA 03/02/2019 G89.4 Chronic pain syndrome ChristietorHernandoli, PA 03/02/2019 R00.2 Palpitations Silvia Colunga, PA 03/02/2019 I89.0 Lymphedema, not elsewhere classified Silvia Colunga, PA 03/02/2019 K59.00 Constipation, unspecified Hektor, SANDRA Vega 03/02/2019 F17.210 Nicotine dependence, cigarettes, uncomplicated Silvia Colunga PA 03/02/2019 F43.23 Adjustment disorder with mixed anxiety and Silvia Colunga PA depressed mood Plan of Treatment Future Appointment(s):09/02/2019 2:15 pm - Silvia Colunga PA at [id number] - Silvia Colunga, PAR00.0 Tachycardia, hqhutjbvapxC57.4 Chronic pain vuhqxlemZ79.1 Impacted teethRef[facility] Nicotine dependence, cigarettes, cviyvsidemqbhN30.23 Adjustment disorder with mixed anxiety and depressed moodK64.9 Unspecified hemorrhoidsNew Medication:Proctosol HC 2.5 % - apply to hemorrhoids twice a day as jzanauH82.92 Unspecified otitis externa, left earNew Medication:Neomycin/ Polymyxin/Hydrocortisone (Otic) 3.5-41189-9 - 5 drops left ear 3x/day for 7 days Functional Status Description No Information Available Mental Status Description No Information Available Referrals Refer to Reason for Referral Status Appt Date [facility] extractions needed per dentist Created [facility] [address] [place] [address] [phone]
[2019-08-29 20:09] LABS: ABS Basophils 0.1 10^3/ul (0-0.2); ABS Eosinophils 0.2 10^3/ul (0-0.6); ABS Lymphocytes 2.8 10^3/ul (1.0-4.8); ABS Monocytes 0.5 10^3/ul (0-0.8); ABS Neutrophils 3.7 10^3/ul (1.5-7.7); Hematocrit 43 % (35-47); Hemoglobin 14.9 g/dL (12.0-16.0); Lymphocyte % 38.7 %; Mean Corpuscular HGB Conc 34 g/dL (31-36); Mean Corpuscular Hemoglobin 31 pg (27-31); Mean Corpuscular Volume 89 fL (80-97); Mean Platelet Volume 9.3 fL (7.4-10.4); Nucleated Red Blood Cells % 0.2; Platelet Count 190 10^3/uL (150-450); Red Blood Count 4.87 10^6 /uL (3.70-4.87); Red Cell Distribution Width 14 % (10-15); White Blood Count 7.3 10^3/uL (3.5-10.8)
[2019-08-29 20:14] LABS: INR 1.03 (0.82-1.09)
[2019-08-29 20:30] LABS: Albumin 4.5 g/dL (3.2-5.2); Calcium 9.6 mg/dL (8.6-10.3); Total Bilirubin 0.2 mg/dL (0.2-1.0)
[2019-08-29 20:36] LABS: Albumin/Globulin Ratio 1.4 (1-3); BUN/Creatinine Ratio 14.9 (8-20); EGFR African American 74.3 (>60); EGFR Non-African American 61.4 (>60); Globulin 3.2 g/dL (2-4); Total Protein 7.7 g/dL (6.4-8.9)
[2019-08-29 20:39] LABS: Potassium 4.1 mmol/L (3.5-5.0)
--- NOTE | 2019-08-29 23:58 | ED ---
Back Pain - HPI Summary HPI Summary: Patient complains of sudden onset sharp pain near her left shoulder blade radiating through chest starting this morning. Pain lasts about 15 minutes. Pain returned around 9 PM this evening. CP, SOB with pain. Pain with deep inhalation. Patient denies fever, cough, sore throat, CP, and/V/D, abdominal pain, change in urine, change in BM. Medical history is HTN, DM, chronic tachycardia being evaluated by Dr. Jones. - History of Current Complaint Chief Complaint: EDChestPainROMI Stated Complaint: BACK PAIN PER PT Time Seen by Provider: 08/29/19 22:59 Hx Obtained From: Patient Onset/Duration: Sudden Onset, Lasting Hours Onset/Duration: Started Hours Ago Timing: Intermittent, Lasting Minutes Back Pain Location: Is Discrete @, Radiates To Severity Initially: Severe Severity Currently: Severe Pain Intensity: 8 Pain Scale Used: 0-10 Numeric Character: Sharp, Aching Aggravating Symptom(s): Movement Alleviating Symptom(s): Nothing Associated Signs And Symptoms: Positive: Negative - Allergies/Home Medications Allergies/Adverse Reactions: Allergies Allergy/AdvReac Type Severity Reaction Status Date / Time Fish Containing Products Allergy Anaphylatic Verified 07/09/19 14:[address] CONTRAST Allergy Anaphylatic Uncoded 01/11/19 14:30 Shock SEAFOOD Allergy Anaphylatic Uncoded 01/11/19 14:30 Shock PMH/Surg Hx/FS Hx/Imm Hx Endocrine/Hematology History: Denies: Hx Diabetes, Hx Thyroid Disease Cardiovascular History: Reports: Hx Angina, Hx Hypertension - pain induced Denies: Hx Coronary Artery Disease, Hx Myocardial Infarction, Hx Pacemaker/ ICD, Hx Peripheral Vascular Disease, Hx Valvular Heart Disease Respiratory History: Denies: Hx Asthma, Hx Chronic Obstructive Pulmonary Disease (COPD) History: Denies: Hx Renal Disease Musculoskeletal History: Reports: Hx Back Problems - chronic pain, Hx Orthopedic Injury - right arm torn tendons Denies: Hx Arthritis Sensory History: Denies: Hx Contacts or Glasses, Hx Hearing Aid Opthamlomology History: Denies: Hx Contacts or Glasses EENT History: Denies: Hx Deafness Neurological History: Denies: Hx Seizures, Hx Transient Ischemic Attacks (TIA) Psychiatric History: Reports: Hx Panic Disorder - PANIC DISORDER - Cancer History Hx Chemotherapy: No Hx Radiation Therapy: No - Surgical History Surgery Procedure, Year, and Place: TUBAL LIGATION 05/1992. RIGHT ARM SURGERY Infectious Disease History: Yes Infectious Disease History: Denies: Traveled Outside the [place] in Last 30 Days - Family History Known Family History: Positive: Cardiac Disease - paternal - Social History Alcohol Use: None Hx Substance Use: No Substance Use Type: Reports: None Substance Use Comment - Amount & Last Used: Pt smokes ciggarettes daily Hx Tobacco Use: Yes Smoking Status (MU): Current Every Day Smoker Type: Cigarettes Amount Used/How Often: 1-2 cigarettes/day Have You Smoked in the Last Year: Yes Review of Systems Constitutional: Negative Eyes: Negative ENT: Negative Positive: Chest Pain Positive: Shortness Of Breath Gastrointestinal: Negative Genitourinary: Negative Musculoskeletal: Other Skin: Negative Neurological: Negative Psychological: Normal All Other Systems Reviewed And Are Negative: Yes Physical Exam - Summary Physical Exam Summary: Tenderness to palpation along left trapezius, left side paraspinal muscles of thoracic spine and muscles surrounding left shoulder blade. PMS intact distally left upper extremity. No ecchymosis, erythema, deformity, swelling noted to back or chest. Lung sounds clear to auscultation bilaterally. Triage Information Reviewed: Yes Vital Signs On Initial Exam: Initial Vitals Temp Pulse Resp BP Pulse Ox 98.6 F 111 16 116/94 94 08/29/19 19:36 08/29/19 19:36 08/29/19 19:36 08/29/19 19:36 08/29/19 19:36 Vital Signs Reviewed: Yes Appearance: Positive: Well-Appearing Skin: Positive: Warm Head/Face: Positive: Normal Head/Face Inspection Eyes: Positive: Normal Neck: Positive: Supple Respiratory/Lung Sounds: Positive: Clear to Auscultation Cardiovascular: Positive: Normal Abdomen Description: Positive: Nontender Musculoskeletal: Positive: Normal Neurological: Positive: Normal Psychiatric: Positive: Normal AVPU Assessment: Alert - [place] Coma Scale Best Eye Response: 4 - Spontaneous Best Motor Response: 6 - Obeys Commands Best Verbal Response: 5 - Oriented Coma Scale Total: 15 Procedures - Sedation Patient Received Moderate/Deep Sedation with Procedure: No Diagnostics - Vital Signs Vital Signs Temp Pulse Resp BP Pulse Ox 08/29/19 19:36 98.6 F 111 16 116/94 94 - Laboratory Lab Results: Lab Results 08/29/19 08/29/19 08/29/19 Range/Units 20:00 20:00 20:00 WBC 7.3 (3.5-10.8) 10^3/uL RBC 4.87 (3.70-4.87) 10^6 /uL Hgb 14.9 (12.0-16.0) g/dL Hct 43 (35-47) % MCV 89 (80-97) fL MCH 31 (27-31) pg MCHC 34 (31-36) g/dL RDW 14 (10-15) % Plt Count 190 (150-450) 10^3/uL MPV 9.3 (7.4-10.4) fL Neut % (Auto) 51.0 % Lymph % (Auto) 38.7 % [place] % (Auto) 6.6 % Eos % (Auto) 3.0 % Baso % (Auto) 0.7 % Absolute Neuts (auto) 3.7 (1.5-7.7) 10^3/ul Absolute Lymphs (auto) 2.8 (1.0-4.8) 10^3/ul Absolute Monos (auto) 0.5 (0-0.8) 10^3/ul Absolute Eos (auto) 0.2 (0-0.6) 10^3/ul Absolute Basos (auto) 0.1 (0-0.2) 10^3/ul Absolute Nucleated RBC 0.0 10^3/ul Nucleated RBC % 0.2 INR (Anticoag Therapy) 1.03 (0.82-1.09) Sodium 135 (135-145) mmol/L Potassium 4.1 (3.5-5.0) mmol/L Chloride 99 L (101-111) mmol/L Carbon Dioxide 28 (22-32) mmol/L Anion Gap 8 (2-11) mmol/L BUN 14 (6-24) mg/dL Creatinine 0.94 (0.51-0.95) mg/dL Est GFR ( Amer) 74.3 (>60) Est GFR (Non-Af Amer) 61.4 (>60) BUN/Creatinine Ratio 14.9 (8-20) Glucose 126 H (70-100) mg/dL Calcium 9.6 (8.6-10.3) mg/dL Total Bilirubin 0.20 (0.2-1.0) mg/dL AST 18 (13-39) U/L ALT 35 (7-52) U/L Alkaline Phosphatase 63 (34-104) U/L Troponin I 0.00 (<0.03) ng/mL Total Protein 7.7 (6.4-8.9) g/dL Albumin 4.5 (3.2-5.2) g/dL Globulin 3.2 (2-4) g/dL Albumin/Globulin Ratio 1.4 (1-3) 08/29/19 Range/Units 23:13 WBC (3.5-10.8) 10^3/uL RBC (3.70-4.87) 10^6 /uL Hgb (12.0-16.0) g/dL Hct (35-47) % MCV (80-97) fL MCH (27-31) pg MCHC (31-36) g/dL RDW (10-15) % Plt Count (150-450) 10^3/uL MPV (7.4-10.4) fL Neut % (Auto) % Lymph % (Auto) % [place] % (Auto) % Eos % (Auto) % Baso % (Auto) % Absolute Neuts (auto) (1.5-7.7) 10^3/ul Absolute Lymphs (auto) (1.0-4.8) 10^3/ul Absolute Monos (auto) (0-0.8) 10^3/ul Absolute Eos (auto) (0-0.6) 10^3/ul Absolute Basos (auto) (0-0.2) 10^3/ul Absolute Nucleated RBC 10^3/ul Nucleated RBC % INR (Anticoag Therapy) (0.82-1.09) Sodium (135-145) mmol/L Potassium (3.5-5.0) mmol/L Chloride (101-111) mmol/L Carbon Dioxide (22-32) mmol/L Anion Gap (2-11) mmol/L BUN (6-24) mg/dL Creatinine (0.51-0.95) mg/dL Est GFR ( Amer) (>60) Est GFR (Non-Af Amer) (>60) BUN/Creatinine Ratio (8-20) Glucose (70-100) mg/dL Calcium (8.6-10.3) mg/dL Total Bilirubin (0.2-1.0) mg/dL AST (13-39) U/L ALT (7-52) U/L Alkaline Phosphatase (34-104) U/L Troponin I 0.00 (<0.03) ng/mL Total Protein (6.4-8.9) g/dL Albumin (3.2-5.2) g/dL Globulin (2-4) g/dL Albumin/Globulin Ratio (1-3) Result Diagrams: 08/29/19 20:00 08/29/19 20:00 Lab Statement: Any lab studies that have been ordered have been reviewed, and results considered in the medical decision making process. Back Pain Course/Dx - Course Course Of Treatment: Patient complains of sudden onset sharp pain near her left shoulder blade radiating through chest starting this morning. Pain lasts about 15 minutes. Pain returned around 9 PM this evening. CP, SOB with pain. Pain with deep inhalation. Patient denies fever, cough, sore throat, CP, and/V/D, abdominal pain, change in urine, change in BM. Medical history is HTN, DM, chronic tachycardia being evaluated by Dr. Jones. Patient tachycardia, history of chronic tachycardia. Vital signs otherwise within normal limits. Labs unremarkable. Serial troponins negative. EKG sinus tachycardia, heart rate of 108, same as prior. Chest x-ray negative. - Diagnoses Provider Diagnoses: Muscle spasm Discharge ED - Sign-Out/Discharge Documenting (check all that apply): Patient Departure - Discharge Plan Condition: Stable Disposition: HOME Prescriptions: Diazepam TAB(*) [Valium TAB(*)] 5 mg PO TID PRN 2 Days #6 tab MDD 3 tabs PRN Reason: Spasms Patient Education Materials: Back Pain (ED) Referrals: Silvia Colunga PA [Primary Care Provider] - Additional Instructions: Tylenol 650 mg every 3 hours during the day for back pain. Take Valium as directed for back pain. Follow-up with primary care. Return to the ED for any new or worsening symptoms. - Billing Disposition and Condition Condition: STABLE Disposition: Home
== END | disposition home or self-care (01) ==
LOC: ED 19:26
DX: M62.838 Other muscle spasm (principal); M54.6 Pain in thoracic spine; R07.89 Other chest pain; R06.02 Shortness of breath; R00.0 Tachycardia, unspecified; E11.9 Type 2 diabetes mellitus without complications; I10 Essential (primary) hypertension; Z91.041 Radiographic dye allergy status; Z91.013 Allergy to seafood; F17.210 Nicotine dependence, cigarettes, uncomplicated
CPT/HCPCS: 36415; 71045; 80053; 83880; 84484; 85025; 85610; 93005; 99282; A9270-GY